=== PATIENT | male | born 1955 | race Caucasian/White ===

== ENCOUNTER → 2018-01-28 14:20 | Outpatient (CLI) | payer OTHER, SELFPAY | PROVIDERS: Visit Provider Podiatrist | DX: L03.031 Cellulitis of right toe (principal) | CPT/HCPCS: 87070; 87075; 87077; 87186; 87205 ==

== ENCOUNTER → 2019-05-15 | Outpatient (CLI) | payer OTHER, SELFPAY ==
[2016-12-04 09:48] VITALS: BMI 37.6
--- NOTE | 2019-05-15 15:55 | RAD_ITS ---
STUDY: X-RAY - PELVIS AND RIGHT HIP REASON FOR EXAM: Male, 64 years old. Right hip pain for one week. TECHNIQUE: 3 views of the pelvis and hip. COMPARISON: None. FINDINGS: There is a non-specific bowel gas pattern. Normal visualized soft tissue structures. There are mild degenerative changes lower lumbar spine. There is narrowing with cortical sclerosis and osteophyte formation of the sacroiliac joint consistent with degenerative osteoarthritic changes. Normal iliac wings and visualized sacrum. Normal bilateral superior and inferior pubic rami. There are degenerative changes of the pubic symphysis with articular narrowing and sclerosis. Normal bilateral ischial tuberosities. Normal visualized right femoral head. There is osteoarthritic spur formation of the right acetabular rim. There is mild articular joint space narrowing of the right hip. RAD/HIP, UNI W/ Pelvis 2-3 Views IMPRESSION: Degenerative changes of the pelvis and right hip. Electronically Signed: Jeffery Whiteside DO at 18:40 EDT Tel [phone], Service support ,
== END | disposition home or self-care (01) ==
LOC: MTLAB 15:50 → MTRAD 15:53
PROVIDERS: Family Provider Family Medicine; PCP Family Medicine; Referring Provider Family Medicine; Visit Provider Family Medicine
DX: M25.551 Pain in right hip (principal)
CPT/HCPCS: 73502

== ENCOUNTER → 2019-06-09 | Outpatient (CLI) | payer OTHER, SELFPAY ==
[2016-12-04 09:48] VITALS: BMI 37.6
--- NOTE | 2019-06-09 16:12 | RAD_ITS ---
STUDY: X-RAY - LUMBAR SPINE REASON FOR EXAM: Male, 64 years old. Leg pain and weakness. TECHNIQUE: 5 view(s) of the lumbar spine were obtained. COMPARISON: None FINDINGS: Normal lumbar lordosis. Mild levoscoliosis centered at the thoracolumbar junction. There is a normal alignment of the vertebrae. Normal vertebral body height without fracture deformity, osteolytic or blastic bone lesions. Moderate to advanced disc narrowing at L1-L2, L2-3 and L3-4 with substantial spondylitic endplate changes. Milder disc narrowing and spondylitic endplate changes at L4-5 and L5-S1. Posterior hypertrophic facet arthrosis at most lumbar levels. Atherosclerotic calcification of the aorta and iliac vessels. RAD/L/S Spine Min 4 Views IMPRESSION: Normal lumbar lordosis with a mild levoscoliosis centered at the thoracolumbar junction. Advanced degenerative disc narrowing and spondylitic endplate changes at L1-2, L2-3 and L3-4 with milder degenerative disc changes at L4-5 and L5-S1. Hypertrophic facet arthrosis at most lumbar levels. Electronically Signed: Amie Chadwick MD at 16:32 EDT , Service support ,
== END | disposition home or self-care (01) ==
LOC: MTRAD 16:10
PROVIDERS: Family Provider Family Medicine; PCP Family Medicine; Referring Provider Family Medicine; Visit Provider Family Medicine
DX: M25.551 Pain in right hip (principal); M48.00 Spinal stenosis, site unspecified
CPT/HCPCS: 72110

== ENCOUNTER 2019-07-07 02:40 | Emergency (ER) | payer OTHER, SELFPAY ==
[2019-06-21 08:05] VITALS: BMI 37.6
[2019-07-07 02:40] VITALS: BP 145/83; PULSE 100; RESP 18; TEMP 37; O2SAT 94; BMI 40.8
--- NOTE | 2019-07-07 03:03 | ED.DCSUM_ITS ---
History of Present Illness Chief Complaint: Back Informant: Patient Narrative: Stated he has a known pectus herniation and DJD in his lumbar spine. He had x- rays that showed these recently. He also had a x-ray of his hips. He saw an orthopedist. He has not seen orthopedic back specialist however. He started physical therapy and has been through 4 sessions. They have been doing traction and range of motion. Tonight he aggravated his low back when he was sitting on the toilet. He tried to get up and felt sharp pain in his left lower back with radiation down the lateral aspect of his leg. This is been going on and off for a year. He took nabumetone with minimal relief. This was given to him by his family doctor. He is never needed narcotics. No loss of bowel or bladder function. Worsened by movement. Describes the pain as sharp Past Medical History - Allergies and Home Meds Allergies/Adverse Reactions: Allergies No Known Allergies Allergy (Verified 07/07/19 02:45) Primary Care Physician: Ari Bar MD [Primary Care Provider] - Prior records reviewed: Yes Past Medical History: - - Reviewed Surgical History: - - Reviewed Lives: Spouse/ Significant Other Smoking Status: Never smoker Alcohol: None Drugs: None Review of Systems General: Denies: Chills, Fever, Sweats Eyes: Denies: Visual changes - bilaterally, Diplopia ENT: Denies: Rhinorrhea, Sore throat Cardiovascular: Denies: Chest pain, Palpitations Respiratory: Denies: Dyspnea, Cough, Dyspnea on exertion Gastrointestinal: Denies: Abdominal pain, Nausea, Vomiting, Diarrhea, Melena, Hematochezia Genitourinary: Denies: Dysuria, Hematuria, Frequency Musculoskeletal: Reports: Back pain, Extremity Pain Skin: Denies: Rash, Wounds Neurological: Denies: Headache, Weakness, Numbness Physical Exam Vital Signs/Narrative: Vital Signs Temp Pulse Resp BP Pulse Ox 07/07/19 02:40 98.6 F 100 18 145/83 H 94 General: Well nourished, Well developed, No Acute Distress Head: Normocephalic, Atraumatic Eyes: Perrl, EOMI ENT: Moist mucous membranes, No rhinorrhea Neck: Supple, Nontender Cardiovascular: Regular rate, Regular rhythm, No murmurs Respiratory: No distress, CTA bilaterally, Chest nontender Abdomen: Soft, Nontender, Nondistended, Normal bowel sounds Back: Normal Inspection, - - Arthur in the left lateral lumbar spine paraspinals. No swelling or deformity. Decreased range of motion all tee secondary to pain.. Negative for: Nontender Extremities: Nontender, No edema Skin: Normal color, No rash Neurological: Alert, Oriented x3, Cranial nerves II-XII grossly intact, Normal Strength, Normal Sensation Psychological: Normal affect, Normal Mood Diagnostic/Tx/Re-eval - Medical Decision Making Time I feel the patient has a lumbar radiculopathy with pinched nerve in his lower back from his DJD. He has not had an MRI yet. He will need one as an outpatient. Given morphine and Toradol with good relief of symptoms. Will be discharged with Percocet and a Medrol Dosepak and will follow up with his spinal doctor. I do not feel he needs acute imaging. I feel he needs an outpatient MRI. He will continue physical therapy. ED Disposition - Plan for ED Patient: Disposition: Psychiatric Hospital or Unit Diagnosis: Lumbar disc herniation with radiculopathy Diagnosis: (Ruled Out): Lumbar disc herniation Instructions: Herniated Intervertebral Disc Prescriptions: MethylPREDNISolone DosePak [Medrol DosePak] 4 mg PO UD #1 box Prescription Printed Oxycodone HCl/Acetaminophen [Percocet 5/325] 1 - 2 tab PO Q6H PRN PRN 3 Days #15 tab PRN Reason: Pain Prescription Printed Referrals: Ari Bar MD [Primary Care Provider] -
[2019-07-07] MEDS: morphine 8 MG/ML Syringe IM (03:09)
[2019-07-07] MEDS: Ketorolac 15 MG/ML Vial IM (03:11)
[2019-07-07 03:47] VITALS: BP 140/60; PULSE 89; RESP 18; O2SAT 96
== END 2019-07-07 03:47 | disposition home or self-care (01) ==
PROVIDERS: Emergency Provider Emergency Medicine; Family Provider Family Medicine; PCP Family Medicine
DX: M51.16 Intervertebral disc disorders with radiculopathy, lumbar region (principal); Z79.82 Long term (current) use of aspirin; Z79.899 Other long term (current) drug therapy
CPT/HCPCS: 96372; 99282

== ENCOUNTER 2019-09-11 12:00 | Outpatient (RCR) | payer OTHER, SELFPAY ==
[2019-06-21 08:05] VITALS: BMI 37.6
--- NOTE | 2019-06-30 08:18 | HP.PTEVAL_ITS ---
Patient's Visit Information FRANSICO OROZCO is a 64 year old M referred to Physical Therapy by Nash Mccarthy DO with a diagnosis of lumbar DDD. Date of Evaluation: 06/29/19 Physical Therapist: Gil Quinn DPT - Visit Plan Frequency: 2x /Week Duration: 4-6 Weeks Plan: Start with SKTC/DKTC, TA activation exercises and lumbar traction. May trial aquatic therapy if not progressing. - Subjective Findings: Pt. is here today for his initial evaluatuion with diagnosis of DDD. Pt. repors having B posterior hip pain for years. He went to see ortho thinking he needed JULIAN, but found that his hips were relatively okay. Pt. reprots having increased pain that starts in hips and radiated down his legs, L worse than R. Pain mostly in his hips. Pt. reports occassional N/T, and a feeling of heaviness in BLEs with prolonged walking. No pain with sitting or lying, but does have incerased pain after ~5-10 minutes of walking and has to stop after ~30 minutes of standing/walking. Pt. has not tired chiro, ice, heat and no exercises to this pioint. Pt. has had an xray, but no MRI. Pt. is retired, but enjoys working on cars in free time. Pt. is hopeful to reduce pain in order to get back to all recreational activities without limitations. - Pain B hips Pain Intensity (Out of 10): 2 Pain Intensity Range: 0, 8 - Objective POSTURE: Pt. is over wt. Pt. has generalized flexed piosture without rounded shuolders and fwrd head. Pt. has anterior tilt of his pelvis in stance, but equal side to side. PALPATION: Pt. has mild pain at L3-L5, but not severe, hypomobiity noted at throughout lumbar spine with spring testing. NEURO: normal DTR, normal sensation throughout lumbar spine. ROM: LUMBAR SPINE: fleuxon min/nil loss mild increase NW, extension min/mod loss increase NW, SB min/nil loss NE bilat, rotation min/nil loss NE bilat. HS tight and hip flexor tightness noted bilat. HIP ROM: normal bilat NE increase in symptoms. MMT: Pt. has good bilatearl LE strength, but has 4/5 hip flexion and abuction both incerase symptoms. gait: Pt. is able to ambulate ~100' prior to having increased pain. Pt. reports pain starting in posterior hips and radiates slightly inferior. STAIRS: 1 flight reciprocal pattern with HR, mild incerase NW. - Goals Goal 1:: Pt. to be I with HEP. Goal Time Frame: 4-6 Weeks Goal 2:: Pt. to have increased HS and hip flexor length without increase insymptoms. Goal Time Frame: 4-6 Weeks Goal 3:: Pt. to have increased fhip flexor and hip abd, core strength by 1/2 grade. Goal Time Frame: 4-6 Weeks Goal 4:: Pt. to walk upto 30 minutes without increase in symptoms. Goal Time Frame: 4-6 Weeks Goal 5:: Pt. to be able to work on his cars without increase in symptoms. Goal Time Frame: 4-6 Weeks - Rehabilitation Potential Physical Therapy Diagnosis: Pt. has signs and symptoms consistent with lumbar DDD. Pt. has decreased core strength, difficulty walking and presents with spinal stenosis like symptoms. Pt. would benefit from PT to increase core stabilty, decrease symptoms and promote tolerance with walking. Rehabilitation Potential: Good - Anticipated Interventions Patient/Client Instruction: Educate patient on: Condition, Plan of Care, Risk Factors, Benefits of Fitness Program For the Purpose of:: To foster healthy habits, To improve decision making, To facilitate caregiver knowledge, To improve self management, To prevent re- injury, To improve ability to perform tasks related to life management, To improve tolerance to ADL's Therapeutic Exercise to Include: Strength training, Power training, Body mechanics, Postural training, Flexibilty training, Gait and locomotor training, Passive ROM, Active ROM, Dynamic Lumbar Stabilization, Eric Exercises For the Purpose of:: To decrease pain, To decrease swelling/inflammation, To increase ROM, To improve nutrient delivery to tissue, To improve muscle performance and motor function, To improve gait and locomotor functions, To improve health of tissue, To decrease soft tissue restriction, To increase flexibility/ROM, To improve endurance Manual Therapy Techniques to Include: Mobilization, Passive ROM, Soft tissue mobilization For the Purpose of:: To decrease pain, To decrease swelling/inflammation, To increase ROM IF ES: Yes Cryotherapy (ice pack, ice massage): Yes Thermo therapy (hot pack): Yes Ultrasound (thermal/non thermal): Yes For the Purpose of:: To decrease pain, To decrease swelling/inflammation, To increase ROM, To improve nutrient delivery to tissue Thank you for the opportunity to evaluate your patient. For Medicare and Medicare HMO plans, please review the plan of care and approve it. It will need to be FAXED BACK to us at [phone] for Medicare purposes. For Medicare only, by signing this I certify the plan of care. Please let me know if there are questions or concerns regarding this plan of care. Physician Signature: Date:
--- NOTE | 2019-08-14 14:57 | HP.PTREVAL_ITS ---
Nash Mccarthy, DO, It has been my pleasure to treat FRANSICO Gamez WALKER over the last 9 visits for lumbar DDD. Please see the progress note below for an update on the physical therapy plan of care! Subjective: Pt. reports I am about 60% better overall. Pt. reports I was doing really well last week, but went to change is oil in both cars and had some increased soreness since. Pt. reports having 1/10 pain currently. He was able to ambulate upto 45' in grocery store last week with minimal issues. Pt. reports symptoms at in center of lumbar spine and slightly to L side. Objective/Function: Lumbar spine ROM: flexion min/nil loss mild increase NW, ext mod loss mild increase NW, SB min/nil loss NE, rotation min/nil loss mild increase NW bilat. Tight HS bilat. Pt. was able to ambulate for 15' with mild increase in symptoms, but was upto 45' last week. MMT: RLE: R hip flexor 4+/5, abd 4/,5 ext 4+/5. LLE hip- flexion 4/5, abd 4+/5. ext 4/5. He was able to completed an oil change of his cars, but did have increased symptoms after wards. Plan Plan: POC extended as he is progressing, but not at full potential. Pt. would benefit from continued PT with focus on core stability exercses, gym core progression and weaning from traction as tolerated. Goals Goal 1:: Pt. to be I with HEP. Goal Time Frame: 4-6 Weeks Goal Progress: Progressing Goal 2:: Pt. to have increased HS and hip flexor length without increase insymptoms. Goal Time Frame: 4-6 Weeks Goal Progress: Progressing Goal 3:: Pt. to have increased fhip flexor and hip abd, core strength by 1/2 grade. Goal Time Frame: 4-6 Weeks Goal Progress: Progressing Goal 4:: Pt. to walk upto 30 minutes without increase in symptoms. Goal Time Frame: 4-6 Weeks Goal Progress: Progressing Goal 5:: Pt. to be able to work on his cars without increase in symptoms. Goal Time Frame: 4-6 Weeks Goal Progress: Progressing Anticipated Interventions Patient/Client Instruction: Educate patient on: Condition, Plan of Care, Risk Factors, Benefits of Fitness Program For the Purpose of:: To foster healthy habits, To improve decision making, To facilitate caregiver knowledge, To improve self management, To prevent re- injury, To improve ability to perform tasks related to life management, To improve tolerance to ADL's Therapeutic Exercise to Include: Strength training, Power training, Body mechanics, Postural training, Flexibilty training, Gait and locomotor training, Passive ROM, Active ROM, Dynamic Lumbar Stabilization, Eric Exercises For the Purpose of:: To decrease pain, To decrease swelling/inflammation, To increase ROM, To improve nutrient delivery to tissue, To improve muscle performance and motor function, To improve gait and locomotor functions, To improve health of tissue, To decrease soft tissue restriction, To increase flexibility/ROM, To improve endurance Manual Therapy Techniques to Include: Mobilization, Passive ROM, Soft tissue mobilization For the Purpose of:: To decrease pain, To decrease swelling/inflammation, To increase ROM IF ES: Yes Cryotherapy (ice pack, ice massage): Yes Thermo therapy (hot pack): Yes Ultrasound (thermal/non thermal): Yes For the Purpose of:: To decrease pain, To decrease swelling/inflammation, To increase ROM, To improve nutrient delivery to tissue Please do not hesitate to contact me at [phone] by phone or if you have questions or concerns regarding this new plan of care! Sincerely, Gil Quinn DPT
--- NOTE | 2019-09-11 12:34 | HP.PTDCSUM_ITS ---
HP - PT D/C Summary It has been my pleasure to treat FRANSICO OROZCO under orders from Nash Mccarthy DO, for the diagnosis of lumbar DDD for a total of 17 visit(s). Discharge Date: 09/11/19 Please see the following information for a summary of their discharge status. - Subjective Subjective: Pt. reports I am 100% better overall. pt. reports being HEP compliant. He is able to walk longer distances and even work on his car. Pt. reports being pleased. No pain pre treatment todayy - Pain B hips Pain Intensity (Out of 10): 0 LB Pain Intensity (Out of 10): 0 - Overall Improvement % Improvement: 100 - Objective Objective/Function: ROM: LUMBAR SPINE: flexion min loss NE, extension min loss NE, SB min loss bilat NE, rotation nil loss NE bilat. Pt. has 75deg of HS length bilaterally. Normal hip extension noted. AMBULATION: Pt. was able to ambulate 1000+ feet without issues. He still has an overall flexed posture. Pt. reported no LBP during this trial. STAIRS: No HR with reciprocal pattern no pain. Pt. has 5/5 BLE strength, except 5-/5 B hip abd and extension. Fair core strength. - Goals Goal 1:: Pt. to be I with HEP. (Pt independent with home and gym exercises) Goal Progress: Goal Met Goal 2:: Pt. to have increased HS and hip flexor length without increase insymptoms. Goal Progress: Goal Met Goal 3:: Pt. to have increased fhip flexor and hip abd, core strength by 1/2 grade. (4+/5 bilaterally) Goal Progress: Goal Met Goal 4:: Pt. to walk upto 30 minutes without increase in symptoms. (Pt. reports being able to walk 45 minutes over the weekend without issues). Goal Progress: Goal Met Goal 5:: Pt. to be able to work on his cars without increase in symptoms. (Pt was able to chane oil and brakes in his car without limitations, slight increased rest periods). Goal Progress: Goal Met - Plan Plan: Pt. to be DC to HEP and gym exercises at this point in time. - D/C Information Discharge Comments: Pt. did very well with traction and core stability exercuses. Pt. reprots being 100% better overall. He does howwever have some limitations in working underneath his car for longer periods of time. He has overall improved strength and control. He is back to most of his activities with out limitations. Pt. will be DC to HEP and gym exercises at this point in time. If there are questions or concerns regarding this patient's physical therapy, please feel free to call me at [phone]. Thank you for the referral of this patient. Sincerely, HELLEN JamesT
== END 2019-09-11 13:00 | disposition home or self-care (01) ==
LOC: PT 12:00
PROVIDERS: Family Provider Family Medicine; PCP Family Medicine; Referring Provider Orthopaedic Surgery; Visit Provider Orthopaedic Surgery
DX: M51.36 Other intervertebral disc degeneration, lumbar region (principal)
CPT/HCPCS: 97012; 97110; 97161; 97530

== ENCOUNTER → 2021-09-26 08:49 | Outpatient (CLI) | payer OTHER, SELFPAY ==
--- NOTE | 2021-09-26 08:53 | RAD_ITS ---
STUDY: X-RAY CHEST REASON FOR EXAM: Male, 66 years old. DYSPNEA TECHNIQUE: PA and lateral COMPARISON: None. FINDINGS: Nonspecific elevation right hemidiaphragm.. There is no demonstrated pleural abnormality. Normal size heart. Normal mediastinum and goldy. Normal visualized pulmonary arteries. Normal visualized aortic arch and descending thoracic aorta. Dorsal spine and shoulders demonstrate degenerative change. Normal visualized ribs, and clavicles. There is no demonstrated abnormality of the visualized soft tissue structures of the upper abdomen. RAD/Chest PA and Lateral IMPRESSION: No acute cardiopulmonary pathology Electronically Signed: Luis Felipe Fermin MD at 16:49 EDT , Service support ,
== END ==
PROVIDERS: PCP Family Medicine; Referring Provider Family Medicine; Visit Provider Family Medicine
DX: R06.00 Dyspnea, unspecified (principal); I20.8 Other forms of angina pectoris
CPT/HCPCS: 71046

== ENCOUNTER 2022-05-12 08:21 | Day surgery (SDC) | payer BC, SELFPAY ==
[2022-05-12] VITALS (7 sets, daily range): BP systolic 102–149; BP diastolic 32–85; PULSE 61–91; RESP 16–18; TEMP 36.3–36.8; O2SAT 94–96; BMI 38.0
[2022-05-12] MEDS: Lactated Ringers 1,000 ML 15 ML IV (08:58)
[2022-05-12 09:06] LABS: Bedside Glucose 176 mg/dL (74-106)
--- NOTE | 2022-05-12 09:47 | H&P.OPEN ---
HPI - General HPI Narrative FRANSICO OROZCO, is a 67 M who presents for surveillance colonoscopy. He has last colonoscopy 5 years ago and several polyps were removed. Patient does have family history of colon cancer in his mother. [facility] Medical History (Updated 05/07/22 @ 14:50 by Leslie Griffin) Alcohol use Back pain Diabetes Diabetes mellitus Dietary restriction DVT (deep venous thrombosis) Fatty liver Hypertension Mixed hyperlipidemia Non-smoker Prostate disease Wears glasses Home Medications amlodipine 10 mg tablet 10 mg PO DAILY 12/02/16 [History Last Taken 05/12/22 07:00] aspirin 81 mg tablet,delayed release 81 mg PO DAILY@0800 12/02/16 [History Last Taken Unknown] losartan 100 mg-hydrochlorothiazide 25 mg tablet 1 ea PO DAILY 12/02/16 [History Last Taken Unknown] naproxen 500 mg tablet 500 mg PO DAILY PRN 12/02/16 [History Last Taken Unknown] pioglitazone 30 mg tablet 30 mg PO DAILY 12/02/16 [History Last Taken Unknown] pitavastatin calcium 4 mg tablet 4 mg PO DAILY 12/02/16 [History Last Taken Unknown] tamsulosin 0.4 mg capsule 0.8 mg PO DAILY 12/02/16 [History Last Taken Unknown] empagliflozin 25 mg tablet (Jardiance) 25 mg PO DAILY 06/21/19 [History Last Taken Unknown] potassium chloride 20 mEq tablet,extended release(part/cryst) 20 meq PO BID #180 tabs 06/21/19 [History Last Taken Unknown] Glumetza 1,000 mg PO BID 07/07/19 [History Last Taken Unknown] ascorbic acid (vitamin C) 1,000 mg capsule,extended release 1 cap PO DAILY 05/07/22 [History Last Taken Unknown] cholecalciferol (vitamin D3) 100 mcg (4,000 unit) capsule 400 mcg PO TUTH 05/07/22 [History Last Taken Unknown] glimepiride 4 mg tablet 4 mg PO BID 05/07/22 [History Last Taken Unknown] vitamin B12 2,500 mcg-folic acid 400 mcg disintegrating tablet 1 tab PO TUTH 05/07/22 [History Last Taken Unknown] Allergy/AdvReac Type Severity Reaction Status Date / Time No Known Allergies Allergy Verified 05/12/22 08:53 Family History (Updated 03/31/22 @ 09:12 by Shweta Bennett) Mother Colon cancer Surgical History (Updated 05/07/22 @ 14:50 by Leslie Griffin) History of colonoscopy with polypectomy History of liver biopsy Hx of foot surgery Hx of tonsillectomy Social History Smoking Status: Never smoker Past Medical/Surgical History Planned Operation Planned Operative Procedure/s: CSCOPE OA S.O.S: No Previous Hospitalizations/Surgeries HX Hospitalizations: No HX of Surgeries: TONSILLECTOMY FISULLA ON L FOOT LIVER BX Any Problems With Anesthesia: No You/Your Family Experience Fever (Hyperthermia) With Anes: No Cholinesterase deficiency: No Cardiovascular Hx Chest Pain within Last 2 months: No Hx of Irregular Heartbeat and/or Afib: No Hx Heart Attack: No Hx Congestive Heart Failure: No Hx Rheumatic Fever: No Hx Hypertension: Yes (CONTROLLED WITH MED) Hx Internal Defibrillator: No Hx Pacemaker: No Hx Cardiac Catheterization: No Hx Cardiac Surgery/Stents/Etc.: No Hx Stress Test: No Hx Pain in Legs when Walking/Leg Cramps: No Respiratory Chronic Cough: No HX of Shortness of Breath: No Hoarseness: No Hx Chronic Obstructive Pulmonary Disease (COPD): No Hx Asthma: No Hx Emphysema: No Hx Sleep Apnea: No Hx Respiratory Tract Infection/Cold (presently): No Do You Snore Loudly (louder than talking or can be heard): No Do You Often Feel Tired/ Fatigued/ Sleepy Dring Daytime?: No Has Anyone Observed You Stop Breathing During Sleep?: No Result (for STOP score): Negative Hx Smoking: No Smoking Status: Never smoker Gastrointestinal Hx Gastroesophageal Reflux: No Hx Gastrointestinal Disorders: No Hx Gastrointestinal Bleed: No Hx Ulcer: No Hx Hiatal Hernia: No Difficulty Chewing/Swallowing: No Special diet followed at home: No Hx Unplanned Weight Loss of 20#: No HX Unplanned Weight Gain of 20#: No Neurological Hx Seizures: No HX Syncope/Blackout Spells/Unconsciousness: No Hx Transient Ischemic Attacks (TIA): No Hx Multiple Sclerosis: No Hx Parkinson's Disease: No Hx Head/Neck Injury: No Hx Headaches: No Hx Back Injury/Pain: Yes (DDD) Recent Onset of Speech Difficulty: No Restless Legs: No Does patient have nerve stimulator: No Blood Disorder Hx Leukemia: No Bleeding Tendencies: No Hx Deep Vein Thrombosis: No Hx High Cholesterol: Yes (ON MED) Blood Transmitted Disease: No Hx Hepatitis: No Hx Cirrhosis: No Hx Anemia: No Hx Blood Disorders: No Reproduction : No Genitourinary Hx Renal Disease: No Musculoskeletal Hx Arthritis: No Hx Rheumatoid Arthritis: No Hx Gout: Yes (25 YRS AGO) Recent Onset of an Orthopedic Problem: No Endocrine Hx Diabetes: Yes Insulin: No Thyroid Disease: No Hx Steroid Therapy: No Psycho/Social Hx Substance Use: No Hx Alcohol Use: No Hx Anxiety: No Hx Depression: No Mental Illness: No Hx Dementia: No Miscellaneous Hx Cancer: No Recent Exposure to Contagious Disease: No Hx of C-Diff: No Any Loose Teeth: No Allergies No Known Allergies Allergy (Verified 05/12/22 08:53) Discharge Is Pt Admitted From a Longterm, or a Halfway: No After D/C, Where Do you Plan to Go: Return Home From the [facility] History Number of Risk Factors: 1 Vital Signs Vital Signs Vital Signs: 05/12/22 08:54 05/12/22 08:54 Temperature 98.2 F Temperature Source Temporal Pulse Rate 91 Respiratory Rate 16 Respiratory Pattern Normal Blood Pressure 149/85 H Blood Pressure Mean 106 Blood Pressure Source Monitor Blood Pressure Position Sitting Blood Pressure Location Right Arm Pulse Ox 96 Oxygen Delivery Method Room Air Weight Weight: 272 lb 14.916 oz Body Mass Index (BMI) 38.0 Physical Exam Const alert and oriented x3 Resp normal respiratory effort and normal air movement Cardio regular rate and regular rhythm GI soft to palpation, non-tender and non-distended Assessment & Plan Assessment/Plan (1) Screening for colon cancer: PLAN: I explained endoscopy in detail to the patient. I explained the risks including but not limited to stroke or heart attack with anesthesia, perforation of the GI tract, bleeding, infection. I explained that any of these could necessitate further emergency surgery. The patient understands and all questions were answered sufficiently. The patient wishes to proceed with procedure. Artemio Luong MD Pager: [facility] [address] [place] [address], [address] [place] [address] Office: Surgery Risks - Colonoscopy Risks Include but are not Limited To: Risks include but are not limited to: Bleeding, perforation requiring further surgery, inability to complete colonoscopy requiring barium enema.
--- NOTE | 2022-05-12 10:22 | OP.CCLET_ITS ---
05/12/2022 Ari Bar Re : Colonoscopy procedure for Sidney Soriano Dear Yosvany This procedure was performed on Thursday, May 12, 2022. My impressions and recommendations are as follows: Impressions : - The entire examined colon is normal on direct and retroflexion views. - No specimens collected. Recommendations : - Discharge patient to home. - Resume previous diet. - Continue present medications. - Repeat colonoscopy in 5 years for surveillance. My findings are described in the full procedure note, which is enclosed. If I can be of further assistance, please feel free to contact me at Doctor phone number(s): , Work: . Sincerely, Artemio Luong MD 05/12/2022 10:21:59 AM This report has been signed electronically.
--- NOTE | 2022-05-12 10:22 | OP.COLON_ITS ---
Patient Name: Sidney Soriano Procedure Date: 05/12/2022 9:52 AM Date of : 1955 Age: 67 Procedure: Colonoscopy Indications: High risk colon cancer surveillance: Personal history of colonic polyps Providers: Artemio Luong MD Medicines: Monitored Anesthesia Care Patient Profile: This is a 67 year old male. Refer to note in patient chart for documentation of history and physical. Last Colonoscopy: 5 years ago. Last Colonoscopy: 5 years ago. Complications: No immediate complications. Procedure: Pre-Anesthesia Assessment: - Prior to the procedure, a History and Physical was performed, and patient medications and allergies were reviewed. The patient's tolerance of previous anesthesia was also reviewed. The risks and benefits of the procedure and the sedation options and risks were discussed with the patient. All questions were answered, and informed consent was obtained. Prior Anticoagulants: The patient has taken no previous anticoagulant or antiplatelet agents. After reviewing the risks and benefits, the patient was deemed in satisfactory condition to undergo the procedure. After I obtained informed consent, the scope was passed under direct vision. Throughout the procedure, the patient's blood pressure, pulse, and oxygen saturations were monitored continuously. The pediatric colonoscope was introduced through the anus and advanced to the cecum, identified by appendiceal orifice and ileocecal valve. The colonoscopy was performed without difficulty. The patient tolerated the procedure well. The quality of the bowel preparation was good. Scope In: 10:02:13 AM Scope Withdrawal Time 0 hours 6 minutes 3 seconds Scope Out: 10:17:38 AM Total Procedure Duration Time 0 hours 15 minutes 25 seconds Findings: The entire examined colon appeared normal on direct and retroflexion views. Impression: - The entire examined colon is normal on direct and retroflexion views. - No specimens collected. Recommendation: - Discharge patient to home. - Resume previous diet. - Continue present medications. - Repeat colonoscopy in 5 years for surveillance. Procedure Code(s): --- Professional --- 79066, Colonoscopy, flexible; diagnostic, including collection of specimen(s) by brushing or washing, when performed (separate procedure) Diagnosis Code(s): --- Professional --- Z86.010, Personal history of colonic polyps CPT copyright 2017 [employer]. All rights reserved. The codes documented in this report are preliminary and upon hairspring staker review may be revised to meet current compliance requirements. Artemio Luong MD 05/12/2022 10:21:59 AM This report has been signed electronically. Number of Addenda: 0 Note Initiated On: 05/12/2022 9:52 AM
== END 2022-05-12 11:01 | disposition home or self-care (01) ==
LOC: EN 08:22 → AC 08:25
PROVIDERS: PCP Family Medicine; Referring Provider Family Medicine; Visit Provider Surgery
PROC: 0DJD8ZZ Inspection of Lower Intestinal Tract, Via Natural or Artificial Opening Endoscopic (ICD-10-PCS; CPT 45378; principal; 2022-05-12 09:25)
DX: Z12.11 Encounter for screening for malignant neoplasm of colon (principal); E11.9 Type 2 diabetes mellitus without complications; I10 Essential (primary) hypertension; E78.00 Pure hypercholesterolemia, unspecified; N40.0 Benign prostatic hyperplasia without lower urinary tract symptoms; K76.0 Fatty (change of) liver, not elsewhere classified; Z79.84 Long term (current) use of oral hypoglycemic drugs; Z86.718 Personal history of other venous thrombosis and embolism; Z79.899 Other long term (current) drug therapy; Z79.82 Long term (current) use of aspirin; Z86.010 Personal history of colon polyps; Z80.0 Family history of malignant neoplasm of digestive organs
CPT/HCPCS: 45378; 82962; J7120

== ENCOUNTER → 2023-05-04 | Outpatient (CLI) | payer BC, SELFPAY ==
[2023-05-04 13:03] LABS: Anion Gap 9 (5-15); BUN 15 mg/dL (7-18); BUN/Creat Ratio 14.3 RATIO (10-20); Calcium,Total 9.4 mg/dL (8.5-10.1); Chloride 102 mmol/L (98-107); Creatinine, Serum 1.05 mg/dL (0.70-1.30); EST Glomerular Filtration Rate 75 mL/min (>60); Est Glom Filt Rate - Afr Amer 90 mL/min (>60); Glucose 148 mg/dL (74-106); Potassium 3.3 mmol/L (3.5-5.1); Sodium Level 137 mmol/L (136-145)
== END | disposition home or self-care (01) ==
LOC: MTLAB 11:06
PROVIDERS: PCP Family Medicine; Referring Provider Family Medicine; Visit Provider Family Medicine
DX: E11.9 Type 2 diabetes mellitus without complications (principal)
CPT/HCPCS: 36415; 80048

== ENCOUNTER → 2023-07-13 | Outpatient (CLI) | payer BC, SELFPAY ==
[2023-07-13 13:10] LABS: ALB/GLOB Ratio 1.1 RATIO (0.9-2.4); AST(SGOT) 20 U/L (15-37); Alanine Aminotransfer ALT/SGPT 38 U/L (16-61); Alkaline Phosphatase 84 U/L (45-117); Anion Gap 9 (5-15); BUN 16 mg/dL (7-18); BUN/Creat Ratio 16.2 RATIO (10-20); Chloride 101 mmol/L (98-107); Creatinine, Serum 0.98 mg/dL (0.70-1.30); EST Glomerular Filtration Rate 80 mL/min (>60); Est Glom Filt Rate - Afr Amer 97 mL/min (>60); Globulin 3.5 g/dL (2.2-4.2); Glucose 125 mg/dL (74-106); PSA,Total - Annual Screen 1.63 ng/mL (0.00-4.00); Potassium 2.9 mmol/L (3.5-5.1); Protein, Total 7.5 g/dL (6.4-8.2); Sodium Level 137 mmol/L (136-145)
== END | disposition home or self-care (01) ==
LOC: MFPLAB 09:54
PROVIDERS: PCP Family Medicine; Visit Provider Family Medicine
DX: Z00.00 Encounter for general adult medical examination without abnormal findings (principal); Z71.85 Encounter for immunization safety counseling
CPT/HCPCS: 36415; 80053; 83036; 84153; G0103

== ENCOUNTER → 2023-08-02 | Outpatient (CLI) | payer BC, SELFPAY ==
[2023-08-02 12:44] LABS: Potassium 3.1 mmol/L (3.5-5.1)
== END | disposition home or self-care (01) ==
LOC: MFPLAB 09:54
PROVIDERS: PCP Family Medicine; Visit Provider Family Medicine
DX: E87.6 Hypokalemia (principal)
CPT/HCPCS: 36415; 84132

== ENCOUNTER → 2023-09-21 | Outpatient (CLI) | payer BC, SELFPAY ==
[2023-09-21 12:09] LABS: Absolute Lymphocyte Count 1.53 X10^3/uL (0.83-4.51); Absolute Neutrophil Count 3.7 X10^3/uL (2.0-7.7); Basophil# 0.03 X10^3/uL; Basophil% 0.5 % (0-1); Eosinophil# 0.09 X10^3/uL; Eosinophils% 1.5 % (0-5); Hematocrit 49.5 % (40-54); Hemoglobin 16.4 g/dL (13.0-16.5); Lymphocyte # 1.53 X10^3/ul (0.83-4.51); Mean Corp Hgb Conc 33.1 g/dL (32-36); Mean Corpuscular Hgb 29.1 pg (27.0-32.0); Mean Corpuscular Volume 87.9 fL (80-94); Mean Platelet Vol. 10.9 fl (6.2-12.0); Monocyte# 0.55 X10^3/uL; Monocyte% 9.3 % (0-10); NRBC Flagged by Analyzer 0 % (0-5); Neutrophil # 3.67 X10^3/uL (2.7-7.7); Neutrophil % 62.4 % (47-70); Platelet Count 273 K/mm3 (150-450); RBC Distribution Width CV 13.8 % (11.6-14.6); RBC Distribution Width SD 44.8 fl (35.1-43.9); Red Blood Count 5.63 M/mm3 (4.6-6.2); White Blood Count 5.9 K/mm3 (4.4-11.0)
[2023-09-21 12:25] LABS: Vitamin D,25 Hydroxy 68.6 ng/mL
[2023-09-21 12:34] LABS: AST(SGOT) 15 U/L (15-37); Alanine Aminotransfer ALT/SGPT 37 U/L (16-61); Albumin, Serum 3.7 g/dL (3.2-5.0); Alkaline Phosphatase 90 U/L (45-117); Anion Gap 6 (5-15); BUN 20 mg/dL (7-18); BUN/Creat Ratio 20.7 RATIO (10-20); Calcium,Total 8.9 mg/dL (8.5-10.1); Chloride 99 mmol/L (98-107); Cholesterol 171 mg/dL (200); Creatinine, Serum 0.97 mg/dL (0.70-1.30); EST Glomerular Filtration Rate 82 mL/min (>60); Est Glom Filt Rate - Afr Amer 99 mL/min (>60); Globulin 3.6 g/dL (2.2-4.2); Glucose 120 mg/dL (74-106); High Density Lipoprotein 49 mg/dL; Potassium 3.1 mmol/L (3.5-5.1); Protein, Total 7.3 g/dL (6.4-8.2); Sodium Level 137 mmol/L (136-145); T4 Free Direct 1.32 ng/dL (0.76-1.46); Thyroid Stim Hormone (TSH) 1.96 uIU/mL (0.358-3.74); Triglycerides 133 mg/dL; Very Low Density Lipoprotein 27 mg/dL (5-40)
[2023-09-21 12:59] LABS: Microalbumin,Random Urine 11.4 mg/L (NO RANGE EST.); Microalbumin:Creatinine Ratio 33.1 mg/g CRE (<30 mg/g CRE)
== END | disposition home or self-care (01) ==
LOC: MFPLAB 09:44
PROVIDERS: PCP Family Medicine; Visit Provider Family Medicine
DX: E11.65 Type 2 diabetes mellitus with hyperglycemia (principal); R80.9 Proteinuria, unspecified; E55.9 Vitamin D deficiency, unspecified
CPT/HCPCS: 36415; 80053; 80061; 82043; 82306; 82570; 83036; 84439; 84443; 85025

== ENCOUNTER → 2023-12-22 | Outpatient (CLI) | payer BC, SELFPAY ==
--- OUTSIDE RECORDS SUMMARY | 2023-12-22 14:45 | XMS RPT_ITS | CCD ---
Author Name Unknown Address [address] [place] [address] Organization [facility] Care Team Providers Care Concreting Supervisor Name Role Phone Unavailable Primary Care Provider UnavailYASMANY Tenorio J Referring Unavailable SHERRY, YASMANY J Referring Unavailable SHERRY, YASMANY J Referring Unavailable Unavailable Primary Care Provider Unavaillinus Chaney MD, [place] Primary Care Provider [phone] Usama GIRALDO, [place] Primary Care Provider [phone] Usama GIRALDO, [place] Primary Care Provider [phone] DUANE KERR Attending Unavailable DUANE KERR Admitting Unavailable USAMA, [place] Primary Care Unavailable SHERRY, YASMANY Attending Unavailable [facility], [facility] Primary Care Unavailable SHERRY, YASMANY Referring Unavailable USAAM, [facility] Primary Care Unavailable SHERRY, YASMANY Referring Unavailable USAMA, [facility] Primary Care Unavailable SHERRY, YASMANY Referring Unavailable SHERRY, YASMANY Attending Unavailable Medications Current Medications Medication Drug Class(es) Dates Sig (Normalized) Sig (Original) ALPRAZolam 0.5 mg oral tablet (2 sources) Benzodiazepine Start: 10-26-2022 End: 10-27-2022 ALPRAZolam (XANAX) 0.5 mg tablet Take 1 tablet by mouth as needed for up to 1 dose. To be administered prior to MRI for anxiolysis. 1 tablet 0 10/26/2022 10/27/2022 Active Completed/Discontinued Medications Medication Drug Class(es) Dates Sig (Normalized) Sig (Original) amLODIPine (16 sources) Dihydropyridine Calcium Channel Charlene AMLODIPINE BESYLATE (AMLODIPINE ORAL) Take by mouth. 0 Active Problems Problem Classification Problem Date Documented Date Episodic/Chronic Anxiety disorders (1 source) Claustrophobia; Translations: [Claustrophobia] 10-29-2023 Chronic Diabetes mellitus with complications (2 sources) Type 2 diabetes mellitus with hyperosmolarity without nonketotic hyperglycemic-hyperos molar coma ([facility]); Translations: [Type 2 diabetes mellitus with hyperglycemia] Onset: 03-19-2023 Chronic Disorders of lipid metabolism (1 source) Hyperlipidemia, unspecified; Translations: [Hyperlipoproteinemia ] Onset: 03-19-2023 Chronic Nutritional deficiencies (1 source) Vitamin D deficiency, unspecified; Translations: [Avitaminosis D] Onset: 03-19-2023 Chronic Spondylosis; intervertebral disc disorders; other back problems (15 sources) Spinal stenosis of lumbar region; Translations: [Spinal stenosis, lumbar region with neurogenic claudication] Onset: 10-26-2022 Episodic Results Test Name Value Interpretation Reference Range Facil ity Vital Signs Date Time Vital Sign Value Performing Clinician Bob doss 10-26-2022 14:06-0500 Diastolic blood pressure 75 mm[Hg] [facility] 10-26-2022 14:06-0500 Heart rate 97 /min [facility] 10-26-2022 14:06-0500 SaO2% (BldA) [Mass fraction] 97 % [facility] 10-26-2022 14:06-0500 Systolic blood pressure 155 mm[Hg] [facility] 08-06-2022 09:52-0400 Body height 175.3 cm Yasmany Gutierrez PA-C Work Phone: [facility] 08-06-2022 09:52-0400 Body weight 125.65 kg Yasmany Gutierrez PA-C Work Phone: [facility] Encounters Encounter Date Encounter Type Care Provider Facility Start: 12-15-2023 End: 12-15-2023 ambulatory [facility] Facility:[facility] Start: 12-02-2023 End: 12-02-2023 ambulatory [facility] Facility:[facility] Start: 11-17-2023 End: 11-17-2023 ambulatory [facility] Facility:[facility] Start: 10-27-2023 ambulatory Yasmany camacho PA-C Work Phone: [facility] Procedures Date Procedure Procedure Detail Performing Clinician Start: 03-19-2023 Lipid 1996 panel - S lance or Plasma Yasmany Gutierrez PA-C Work Phone: Start: 10-26-2022 Mri spinal canal lum bar w/o contrast material Yasmany uGtierrez PA-C Work Phone: Start: 08-04-2022 Adult depression screening assessment Yasmany Gutierrez PA-C Work Phone: Plan of Treatment Date Care Activity Detail Author Start: 03-19-2028 Lipid 1996 panel - Serum or Plasma Lipid Screening [facility] Start: 03-19-2028 Lipid panel Lipid Screening [facility] Start: 03-19-2028 LIPID SCREEN LIPID SCREEN [facility] Start: 08-10-2027 LIPID SCREEN LIPID SCREEN [facility] Start: 11-06-2026 LIPID SCREEN LIPID SCREEN [facility] Start: 03-19-2026 DIABETES SCREEN DIABETES SCREEN [facility] Start: 03-19-2026 Diabetes Screening Diabetes Screening [facility] Start: 08-10-2025 DIABETES SCREEN DIABETES SCREEN [facility] Start: 03-16-2025 DIABETES SCREEN DIABETES SCREEN [facility] Start: 08-04-2023 Adult depression screening assessment DEPRESSION SCREENING [facility] Start: 07-23-2023 Covid-19 Vaccine ( season) Covid-19 Vaccine ( season) [facility] Start: 07-23-2023 Influenza vaccination [facility] Start: 01-17-2023 COVID-19 VACCINE (6 - Moderna series) COVID-19 VACCINE (6 - Moderna series) [facility] Start: 11-22-2022 ADVANCE DIRECTIVE DISCUSSION ADVANCE DIRECTIVE DISCUSSION [facility] Start: 11-22-2022 DEPRESSION ASSESSMENT DEPRESSION ASSESSMENT [facility] Start: 07-23-2022 Influenza vaccination INFLUENZA (#1) [facility] Start: 07-18-2022 Urine microalbumin profile DTaP,Tdap,Td Vaccine (2 - Td or Tdap) [facility] Start: 05-11-2022 COVID-19 VACCINE (5 - Booster for Moderna series) COVID-19 VACCINE (5 - Booster for Moderna series) [facility] Start: 02-05-2022 COVID-19 VACCINE (4 - Booster for Moderna series) COVID-19 VACCINE (4 - Booster for Moderna series) [facility] Start: 11-22-2021 ADVANCE DIRECTIVE DISCUSSION ADVANCE DIRECTIVE DISCUSSION [facility] Start: 11-22-2021 DEPRESSION ASSESSMENT DEPRESSION ASSESSMENT [facility] Start: 2020 Pneumococcal Vaccine: 65+ (1 - PCV) Pneumococcal Vaccine: 65+ (1 - PCV) [facility] Start: 2020 PNEUMOCOCCAL: 65+ (1 - PCV) PNEUMOCOCCAL: 65+ (1 - PCV) [facility] Start: 2015 RSV Vaccine (1 - 1-dose 60+ series) RSV Vaccine (1 - 1-dose 60+ series) [facility] Start: 09-12-2012 Shingrix Vaccine (2 of 3) Shingrix Vaccine (2 of 3) [facility] Start: 2010 PROSTATE CANCER SCREENING DISCUSSION PROSTATE CANCER SCREENING DISCUSSION [facility] Start: 2010 Prostate specific antigen measurement Prostate Cancer Screening Discussion [facility] Start: 2005 SHINGRIX VACCINE (1 of 2) SHINGRIX VACCINE (1 of 2) [facility] Start: 2000 COLOGUARD (FIT-DNA) COLOGUARD (FIT-DNA) [facility] Start: 2000 Colonoscopy COLONOSCOPY [facility] Start: 2000 COLORECTAL CANCER SCREENING COLORECTAL CANCER SCREENING [facility] Start: [address] COLONOGRAPHY [facility] Start: 2000 FECAL OCCULT BLOOD FECAL OCCULT BLOOD [facility] Start: 2000 Screening for malignant neoplasm of colon [facility] Start: 2000 SIGMOIDOSCOPY SIGMOIDOSCOPY [facility] Start: 1974 Urine microalbumin profile [facility] Start: 1973 HEPATITIS C SCREENING HEPATITIS C SCREENING [facility] Start: 1973 Hepatitis C screening Hepatitis C Screening [facility] Start: 1967 Adult depression screening assessment DEPRESSION SCREENING [facility] End: 09-05-2023 Mri spinal canal lumbar w/o contrast material MRI LUMBAR SPINE WO IVCON Radiology Routine Spinal stenosis of lumbar region with neurogenic claudication 1 Occurrences starting 08/06/2022 until 09/05/2023 [facility] Work Phone: Immunizations Immunization Date Immunization Notes Care Provider Margo conner 09-01-2022 influenza virus vacc ine, unspecified formulation Yasmany Gutierrez PA-C Work Phone: [facility] Payers Date Payer Category Payer Unknown [id number] 2021 Unknown [id number] Social History Date Type Detail Facility Start: 02-10-2016 Tobacco smoking stat us NHIS Never smoked tobacco [facility] Start: 02-10-2016 Tobacco use and exposure Smoke less tobacco non-user [facility] Start: 02-10-2016 End: 08-06-2022 Alcohol intake Not Asked [facility] Start: 1955 Sex Assigned At Not on file [facility] Start: 07-31-2022 End: 10-26-2022 Exposure to SARS-CoV-2 (event) Not sure [facility] Start: 08-06-2022 End: 09-29-2023 History of Social function [facility] Start: 08-06-2022 End: 09-29-2023 Tobacco use panel [facility] Adult Depression Scr eening Assessment 0 [facility] Clinical Notes 08-04-2022 to 12-15-2023 Telephone Encounter - Yasmany Gutierrez PA-C - 10/29/2023 3:25 PM ESTTelephone Encounter - Jon Saldivar - 10/11/2023 11:33 AM Yasmany England PA-C - 09/29/2023 3:01 PM EST Note Date & Type Note Facility 12-15-2023 Note HNO ID: [id number] Author: YASMANY GUTIERREZ PA-C Service: ? Author Type: Physician Car Sales Representative Type: Progress Notes Filed: 12/15/2023 14:49 Note Text: Spine Surgery Established Last office visit: 09/29/23 HPI: Follow-up recent injection with Dr. Kirby, received great relief from injection for couple of weeks, continues with ~ 60 % improvement of his R buttock/leg pain Injection History: Surgery/Procedure Date: November 17, 2023 Interventionalist: Pravin Kirby DO Procedure(s): L3-4 interlaminar epidural steroid injection Surgery/Procedure Date: 08/12/2023 Surgeon: Duane Kerr DO Procedure(s): Interlaminar Epidural Injection L4-L5 Right paramedian approach Exam: Motor: 5/5 Sensory: intact Reflexes: intact Imaging: MRI lumbar spine (10/26/22): extensive degenerative changes with scoliosis; canal stenosis throughout the lower lumbar spine Assessment/Plan: R buttock, leg pain; lumbar spondylosis, stenosis; neurologically intact Plan for repeat BOBBI (L3-4 IL) with Dr. Kerr ([facility]) Consult Dr. 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 Author Type: Technologist Type: Progress Notes Filed: 12/02/2023 10:07 Note Text: Radiology Service Progress Note PATIENT NAME: Fransico Soriano DATE OF SERVICE: December 02, 2023 TIME: 10:07 AM PATIENT IDENTITY VERIFICATION COMPLETED USING TWO (2) IDENTIFIERS: Name and Date of confirmed by patient verbally. FALL SCREENING: Has the patient had 2 falls in the last year or 1 fall with injury or currently using an Ambulatory Assistive Device (Walker, Cane, Wheelchair, Crutches, etc.)? No PATIENT GENDER DATA: Male PATIENT RELEVANT IMPLANT DATA REVIEWED: Yes RADIOLOGY DEPARTMENT: MR; Exam(s) Completed: Spine: Lumbar spine PERIPHERAL IV DATA: Not applicable SIGNED BY: RT Shanti(R) December 02, 2023 10:07 AM [facility] 11-17-2023 Note HNO ID: [id number] Author: Pravin Kirby DO Service: ? Author Type: Physician Type: Procedures Filed: 11/17/2023 12:54 PM Note Text: PROCEDURE REPORT Surgery/Procedure Date: November 17, 2023 Interventionalist: Pravin Kirby DO Procedure(s): L3-4 interlaminar epidural steroid injection Pre-Op/Pre-Procedure Diagnosis: Lumbar spinal canal stenosis with neurogenic claudication Post-Op Diagnosis: same SUBJECTIVE: Fransico Soriano is a 68 year old male who presents to [facility] for a Lumbar epidural steroid injection. This is his first (1) procedure with or, but he had an L4-5 interlaminar epidural steroid injection with Dr. Kerr on 08/12/23. 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 68 year old male who presents with pain located lateral aspect of RLE and worsening of symptoms with ambulation. Pain today is 8/10. I have reviewed the nurses notes and am aware of the patient's history. OBJECTIVE: Vital signs are documented in the chart by nursing prior to and throughout the procedure. INFORMED CONSENT: Risks, benefits, alternatives and personnel discussed with patient who consents to proceed. A formal sign in and timeout with team members and patient present were performed prior to procedure start/delivery of medication. PROCEDURE: Procedure: Lumbar Epidural Steroid Injection Fransico Soriano was transferred to the Procedure Room. After placement of routine monitors (blood pressure, pulse oximetry, and heart rate monitored by dedicated nurse), the procedure was performed in the usual manner. Sedation: No. Start time: 1152 Stop time: 1208 Fluoroscopy time: 41 seconds Level: L3-L4 Technique: Patient positioned prone. Procedure area was prepped with Betadine and draped with sterile coverings. Entry point was identified utilizing fluoroscopic imaging. Entry point was anesthetized with 1% lidocaine. A left paramedian interlaminar approach was used with C-arm guidance. A #20 gauge Touhy needle was inserted and directed to appropriate location within the interlaminar window. Standard loss of resistance technique employed to identify epidural space. Aspiration revealed no blood or cerebrospinal fluid in the loss of resistance syringe. Syringe was removed and no CSF was visualized draining from needle. 2 cc of iohexol contrast was then injected. Fluoroscopic imaging was performed in two views and showed epidural flow pattern. A solution of 1% lidocaine 1.5 cc and Dexamethasone 15 mg was injected. No paresthesias or pain were experienced. The needle was then removed. Adequate hemostasis was obtained at the needle puncture site. The patient's back was cleaned and a sterile dressing was applied. Patient tolerated the procedure well and was taken conscious and in stable condition to the recovery room for observation. No complications as a result of this procedure. Post procedure precautions and instructions were reviewed with the patient who verbalized understanding. I/primary surgeon/proceduralist performed the procedure with the fellow. I was assisted by Sal Sawyer MD and was present at bedside throughout entire procedure. Tasks performed included steering needle to appropriate location, administering contrast, and injecting medication. No complications were encountered. Estimated blood loss: none Specimens: none Implanted devices: none Drains: none Post procedure physical exam unchanged from pre procedure. Significant findings: AP was oblique 10 to the right for the L3 vertebral body Caudal 15-20 to better visualize the L3-4 interlaminar window Oblique 5 right total for trajectory ASSESSMENT: Pre Procedure diagnosis: Lumbar spinal canal stenosis with neurogenic claudication Post-Procedure diagnosis: same Pre Procedure Pain Level: same as above Post Procedure Pain Level: As documented in nursing notes and paper chart Purposeful response to verbal or tactile stimulation: Yes PLAN: Patient is to complete post-procedure pain diary and contact office as follow-up in 2-3 weeks. Fransico Walker was transferred to the recovery room and is to be discharged home in stable condition. Post op instructions reviewed with patient. Pravin Kirby DO [facility] 11-17-2023 Note HNO ID: [id number] Author: Jeanne Sarmiento RN Service: ? Author Type: Registered Nurse Type: Progress Notes Filed: 11/17/2023 12:54 PM Note Text: NON-SEDATION PROCEDURE FORM November 17, 2023 7:36 AM Room Number: S7-729 Fluoroscopy suite ID verified: Yes Arrived via indpendent ambulation 68 year old Weight: Last 2 Encounter Wt Readings: Date: Wt: 08/06/2022 125.6 kg (277 lb) 02/10/2016 127.5 kg (281 lb) Indication for Procedure (Associated Diagnoses): low back pain Procedure ordered: Inter-laminar Lumbar epidural steroid injection: Midline; Level: L3-L4. Verified by patient by: Dr. Kirby Photograph Finisher for post spine injection procedure: Yes Patient mentation: alert, oriented, cooperative Yes Allergies: ALLERGIES No Known Allergies Pre-Procedural medication orders:N/A Patient Documented in med note. Pre-procedural orders Discharge / transfer when discharge assessment criteria met: Alert and oriented X3, moves all extremities X4, vital signs stable, injection site flat and dry. Able to ambulate as prior to procedure Sign In Communication: Allergies and medications reviewed. Site of the procedure confirmed:Yes Informed Consent Complete: Yes Relevent diagnostic tests reviewed (i.e., use of anticoagulants, INR, platelet count, imaging, etc.) Yes Critical Information: Proceduralist: Dr. Mirta Sawyer MD PROCEDURAL TIME OUT: Time out verification includes:Audible time-out documented: Yes. Time: 1148 Correct Patient: Two Patient Identifiers Correct side/ site marking, prep and dry time (If applicable) Accurate Consent Correct Procedure Correct Positioning Safety Precautions Based on Patient History or Medication Team agrees: correct patient, correct procedure, correct site, correct position UNIVERSAL PROTOCOL / SAFETY CHECKLIST Procedure to be Performed: Inter-laminar Lumbar epidural steroid injection: Midline; Level: L3-L4. Sign In: A Moment of CARE was completed. Personnel directly involved with the procedure wore the appropriate PPE (Personal Protective Equipment). No special equipment needed. Patient/Surrogate Stated/Verified: PATIENT VERIFIED(optional for EMERGENT procedures): Patient name, Date of , Relevant allergies, and The intended procedure Time Out Communication: Intended patient and procedure match the source documents. Consent documented and matches the intended procedure. Relevant labs, photos, and/or imaging studies have been reviewed. Correct side/site marked and visible. Medications required for procedure verified. No fire risk assessment and interventions applicable. No implant(s) inserted. Sign Out: SIGN OUT (optional for EMERGENT procedures): No specimen collected. Angelita Lopez RN Procedure Start time: 1152 Monitors On: NIBP Yes Pulse Oximetry Yes Site Prep: Povidone iodine, allowed to dry for 30 seconds Procedure Events: Vital Signs documented in activity above. Medications given, interventions, and notes: Time: BP Pulse R O2 Sat 1151 146/88 111 18 95 1155 161/88 115 18 96 1200 136/61 95 18 94 1205 135/78 93 18 93 Omnipaque (iohexol) 300mg/mL SDV volume 50 mL, Lidocaine 1% 10mg/mL SDV volume 30 mL Preservative-Free, and Dexamethasone Na phosphate 4mg/mL Preservative-Free Total Fluroscopy time:: 41 seconds. Procedure Finish Time: 1208 SIGN-OUT Dressings Applied to site(s): hypoallergenic transparent Tegaderm with absorbent nonadherent pad Abreu concerns for recovery and management of patient reviewed verbally prior to patient leaving procedure room. Post- Procedure Events: Vital Signs documented as below. Medications given, interventions, and notes as needed: Yes Time: BP Pulse R O2 Sat Pain scale 1213 137/62 94 18 96 2 AMBULATORY PATIENT EDUCATION TOPIC: PROCEDURE / SURGERY: Post Procedure Teaching: Symptom Management and Wound Care READINESS TO LEARN COGNITIVE ABILITY: Alert and oriented MOTIVATION TO LEARN: Eager FAMILY SUPPORT: Unable to assess - Family not present INSTRUCTION PROVIDED TO: Patient PATIENT LEARNS BEST BY: Individual Instruction Written Instruction - Hand-outs Verbal Instruction FACTORS AFFECTING LEARNING: None PHYSICAL LIMITATIONS AFFECTING LEARNING: None LEARNING RESPONSE METHOD OF INSTRUCTION: Teach Back post procedure instructions Individual instruction Written instruction - handouts Verbal instruction PATIENT / FAMILY RESPONSE: Verbalizes understanding of: POST-PROCEDURE INSTRUCTIONS-Correct actions to take to reduce post procedure complications Information received as demonstrated by interest and questions FOLLOW-UP PLAN: Patient instructed to call with any further issues SUPPLEMENTAL MATERIAL: Procedure discharge instructions REFERRAL (RECOMMENDATION): None Electronically Signed By Jeanne Sarmiento RN In Department: [facility] Discharge assessment: PAIN SCALE: 2 on a scale of 0-10 (0=none, 10=extreme) Discharge: Verbal (more content not included)... [facility] 11-17-2023 Note HNO ID: [id number] Author: Sal Sawyer MD Service: ? Author Type: Fellow Type: Progress Notes Filed: 11/17/2023 12:54 PM Note Text: PROCEDURAL HISTORY AND PHYSICAL EXAM SERVICE DATE and TIME: November 17, 2023 at 10:55 AM The History and Physical (completed in the past 30 days) has been reviewed and the patient has been examined. The contents accurately reflect the patient's condition with the following additions or revisions since the HANDP was completed. Patient referred by Yasmany Gutierrez. ASSESSMENT AND PLAN M48.062 Spinal stenosis of lumbar region with neurogenic claudication (primary encounter diagnosis) Patient here today for Inter-laminar Lumbar epidural steroid injection: Midline; Level: L3-L4. SUBJECTIVE HPI: This is a 68 year old male who presents with pain located lateral aspect of RLE and worsening of symptoms with ambulation. Pain today is 8/10. PAST MEDICAL HISTORY: PAST MEDICAL HISTORY Diagnosis Date BPH (benign prostatic hyperplasia) Diabetes mellitus type 2, uncomplicated (HCC) History of fatty infiltration of liver Hyperlipidemia Hypertension PAST SURGICAL HISTORY: PAST SURGICAL HISTORY Procedure Laterality Date PAST SURGICAL HISTORY OF foot fistula MEDICATIONS: Prior to Admission medications as of 09/29/23 1435 Medication Sig Last Dose Taking gabapentin (NEURONTIN) 300 mg capsule Take 2 capsules by mouth daily at bedtime for 60 days. diazePAM (VALIUM) 5 mg tablet Take 1 tablet 45 min prior to MRI, repeat dose if necessary, will need box truck driver DARLENE 5 mg/0.5 mL pen injector empagliflozin (JARDIANCE) 25 mg tablet Take 25 mg by mouth daily with breakfast. potassium chloride (KLOR-CON) 20 mEq packet Take by mouth twice daily. LOSARTAN/HYDROCHLOROTHIAZIDE (HYZAAR ORAL) Take by mouth. AMLODIPINE BESYLATE (AMLODIPINE ORAL) Take by mouth. Pitavastatin 4 mg tab Take by mouth. tamsulosin ER (FLOMAX) 0.4 mg cp24 Take 0.4 mg by mouth. canagliflozin (INVOKANA) 300 mg tablet Take by mouth daily before breakfast. pioglitazone (ACTOS) 30 mg tablet Take 30 mg by mouth once daily. metFORMIN ER (GLUMETZA) 1,000 mg 24 hr tablet Take 1,000 mg by mouth daily with breakfast. EXENATIDE MICROSPHERES (BYDUREON SUBCUTANEOUS) Inject subcutaneously. VITAMIN B COMPLEX ORAL Take by mouth. CALCIUM CARBONATE/VITAMIN D3 (VITAMIN D-3 ORAL) Take by mouth. VITAMIN E ORAL Take by mouth. ASCORBIC ACID (VITAMIN C ORAL) Take by mouth. naproxen (NAPROSYN) 500 mg tablet Take 1 tablet by mouth twice daily as needed (for pain/inflammation). Take with food. ALLERGIES: ALLERGIES No Known Allergies OBJECTIVE PHYSICAL EXAM: VITAL SIGNS: There were no vitals filed for this visit. AIRWAY: Patent, Full neck flexion and extension, Uvula visible RESP: Non-labored breathing. CV: Extremities are warm and well-perfused. Motor: Motor: 5/5 BLE HF, KF, KE, AD, EHL, PF The remainder of the physical exam is noncontributory. Risk, benefits, medications, personnel, and process of the procedure was explained to the patient with explicit agreement by patient or patient life assurance representative to proceed before procedure. SIGNATURE: Sal Sawyer MD PATIENT NAME: Fransico Soriano DATE: November 17, 2023 TIME: 10:55 AM [facility] 10-29-2023 Miscellaneous Notes Contacted patient, discussed his message sent to the office Given the severity of his symptoms, he is not sure he can wait until end of November for injection with [place] He is interested in doing the injection at if it can be done sooner, will order and routed to scheduling team at I do think updated MRI is also warranted, this has been ordered and routed to scheduling. He was given valium po to take prior to MRI for claustrophobia If no improvement with injection will plan for surgical consult documented in this encounter [facility] 10-11-2023 Miscellaneous Notes Patient scheduled for a procedure on 12/22/23 in the [facility]. Pt instructed that a box truck driver must remain present during the entire procedure. -is patient on home oxygen therapy No - nothing to eat after midnight before the procedure - may have clear liquids on day of procedure up until 2 hours prior to procedure - to take all routine medications for heart, hypertension and seizures can be taken with a small amount of water up to 2 hours prior to procedure. - discontinue anti-inflammatory medications, Aspirin products and all Vitamins 5 days prior to procedure: - no pain medication 6 hours prior to procedure. Is patient diabetic? Yes Is patient currently taking Coumadin, Pletal, Plavix, Rheopro, Ticlid, Lovenox, Heparin, or any other blood thinners? REVIEWED BY PROVIDER: , no Is patient allergic to Latex, shellfish, seafood, iodine, contrast dye, steroids or local anesthetics? No Does patient have a history of pacemaker or internal defibrillator, or seizure disorder?No Pt verbalized understanding of above instructions: Yes Printed instructions handed to patient: No My Sourceboxhart message sent with instructions:Yes Order entered for L3-4 IL injection Imaging reviewed with Dr. Kerr 10/08 Message sent to Yfn for scheduling injection Yasmany Gutierrez PA-C Spine Surgery documented in this encounter [facility] 09-29-2023 Note HNO ID: [id number] Author: Yasmany Gutierrez PA-C Service: ? Author Type: Physician Car Sales Representative Type: Progress Notes Filed: 09/30/2023 8:22 AM Note Text: Spine Surgery Established Last office visit: 08/06/22 HPI: Follow-up recent injection with Dr. Kerr Surgery/Procedure Date: 08/12/2023 Surgeon: Duane Kerr DO Procedure(s): Interlaminar Epidural Injection L4-L5 Right paramedian approach Patient did have significant relief for 1-2 days post-procedure and then symptoms returned to baseline, and have progressed in the past 3-4 weeks to more severe pain down the R buttock, lateral thigh to the knee Worse with standing/walking, improved with sitting He does have difficulty laying down at night Denies any LLE radicular symptoms at this time Exam: Motor: 5/5 Sensory: intact Reflexes: intact Imaging: MRI lumbar spine (10/26/22): extensive degenerative changes with scoliosis; canal stenosis throughout the lower lumbar spine Assessment/Plan: R buttock, leg pain; lumbar spondylosis, stenosis; neurologically intact Discussed consideration of repeat injection, may consider L3-[address] Kerr Trial of gabapentin for the nerve pain, he will follow-up in 1 week with an updated on effectiveness/tolerance Yasmany Gutierrez PA-C Spine Surgery A total of 30 minutes pmei-[id number] time was spent reviewing patients imaging, examining the patient, and discussing further treatment options. [facility] 09-29-2023 History of Presen t illness Narrative Spine Surgery Established Last office visit: 08/06/22 HPI: Follow-up recent injection with Dr. Kerr Surgery/Procedure Date: 08/12/2023 Surgeon: Duane Kerr DO Procedure(s): Interlaminar Epidural Injection L4-L5 Right paramedian approach Patient did have significant relief for 1-2 days post-procedure and then symptoms returned to baseline, and have progressed in the past 3-4 weeks to more severe pain down the R buttock, lateral thigh to the knee Worse with standing/walking, improved with sitting He does have difficulty laying down at night Denies any LLE radicular symptoms at this time Exam: Motor: 5/5 Sensory: intact Reflexes: intact Imaging: MRI lumbar spine (10/26/22): extensive degenerative changes with scoliosis; canal stenosis throughout the lower lumbar spine Assessment/Plan: R buttock, leg pain; lumbar spondylosis, stenosis; neurologically intact Discussed consideration of repeat injection, may consider L3-[address] Kerr Trial of gabapentin for the nerve pain, he will follow-up in 1 week with an updated on effectiveness/tolerance Yasmany Gutierrez PA-C Spine Surgery A total of 30 minutes [id number] time was spent reviewing patients imaging, examining the patient, and discussing further treatment options. documented in this encounter [facility] 09-24-2023 Miscellaneous Notes Spoke with patient. See Telephone encounter 09/23/23 documented in this encounter [facility] 08-18-2023 Miscellaneous Notes Patients called to ask if the appointment her has scheduled for tomorrow is too soon after his procedure. Please advise documented in this encounter [facility] 07-29-2023 Miscellaneous Notes Called and spoke with patient. Discussed medication guidelines for upcoming procedure. Patient verbalizes understanding. Information sent on Appsee for review. No other questions or concerns. documented in this encounter [facility] 11-05-2022 Miscellaneous Notes Injection order for Dr. Kerr LEFT paramedian L4-5 BOBBI Await patient response on proceeding prior to scheduling Yasmany Gutierrez PA-C Spine Surgery documented in this encounter [facility] 09-07-2022 Miscellaneous Notes Returned call to # provided, was patients #. Spoke with patient, informed r d internship was not able to schedule MRI due to incorrect, conflicting information? Unable to contact [facility] schedulers. Called radiology scheduling, states order looks ok, unsure reason for call, will forward to incoming freight clerk to contact patient. Eufemia Muñiz RN Tabbetha with scheduling is calling pertaining MRI order PA placed Tabbetha states a whole new MRI order is need due conflicting comments Tabbetha states order need to be IV sedation or anesthesia Tabbetha is requesting to call patient back when order is placed [phone] documented in this encounter [facility] 09-04-2022 Miscellaneous Notes I would not recommend open MRI for spine I have placed the order for MRI with IV sedation per patient request Yasmany Gutierrez PA-C Spine Surgery Spoke with patient. States never had an MRI in past. Did not know he was claustrophobic. Took him 2 days to be able to call us due to being so upset with experience. [place] location is under construction and MRI's are being done in a small trailer which added to anxiety. Discussed options to repeat MRI - asking if could try an open MRI? Is willing to try IV Sedation? Does not think oral Valium will be enough. Did discuss under general anesthesia as well. Forward to JULIUS for new MRI order under IV sedation. Patient has scheduling # to call, will wait until tomorrow to call an schedule. Unless open MRI ok, Nurse will contact him back. Eufemia Muñiz RN Pt returned call to RN: he could not complete the MRI due to claustrophobia. Please call him back at ph: [phone] Neuro SPINE CARE COORDINATION QUICK NOTE Reviewed chart. Appt scheduling note indicates pt left MRI without being seen. Call to pt to gather more information. No answer. LVM with office number for call back. Carolin Dominguez RN Logistic Manager ----- Message from Yasmany Gutierrez PA-C sent at 09/01/2022 10:00 AM EDT ----- Eufemia Can you check on if this MRI was completed, it looks like from appointments he was checked in, no images available outside of his lumbar XR, and I need to review the MRi with Dr. Kerr tomorrow or Th Thank you Al documented in this encounter [facility] 08-27-2022 History of Presen t illness Narrative Radiology Service Progress Note PATIENT NAME: Fransico Soriano DATE OF SERVICE: August 27, 2022 TIME: 8:34 AM PATIENT IDENTITY VERIFICATION COMPLETED USING TWO (2) IDENTIFIERS: Name and Date of confirmed by patient verbally. FALL SCREENING: Has the patient had 2 falls in the last year or 1 fall with injury or currently using an Ambulatory Assistive Device (Walker, Cane, Wheelchair, Crutches, etc.)? No PATIENT GENDER DATA: Male PATIENT RELEVANT IMPLANT DATA REVIEWED: Not Applicable RADIOLOGY DEPARTMENT: General X-ray: Exam(s) Completed: Spine X-Ray(s): Lumbar AP / LAT / L5-S1 / FLEX-EXT PERIPHERAL IV DATA: Not applicable SIGNED BY: RT Carmela(R) August 27, 2022 8:34 AM documented in this encounter [facility] 08-06-2022 History of Presen t illness Narrative Images from the original note were not included. SPINE SURGERY OUTPATIENT CONSULT SERVICE DATE: 08/06/2022 PCP: No primary care provider on file. REFERRING PROVIDER: SELF SUBJECTIVE Fransico Soriano is a 67 year old male presenting with spouse. CHIEF COMPLAINT: low back pain, LEFT leg pain HISTORY OF PRESENT ILLNESS: Presents to spine center for chronic low back pain, which radiates to the LEFT buttock and lateral thigh down to the knee Associated with numbness down the LEFT lateral thigh Worse with standing, walking, he obtains relief after sitting for 2-3 minutes, no issues when he is sitting Symptoms initially began 4 yrs ago, slowly progressed since that time PRECIPITATING EVENT: None DURATION OF SYMPTOMS: Progressive 4 yrs PAIN EVALUATION 08/06/2022 0945 Pain Level: 2 2-7 Description: Dull;Sharp;Numbness Duration Amount of Time: 4 Duration Units: Months Frequency: Continuous Intervention/Comfort measure: Medication Comments: ride bikes DERMATOMAL DISTRIBUTION: Left: L4 and L5 AMBULATORY STATUS: Independent Community Distances ANTIPLATELET OR ANTICOAGULATION STATUS: No PREVIOUS CONSERVATIVE TREATMENTS: Physical therapy Home exercises from PT PREVIOUS SPINAL SURGERY: None PAST MEDICAL HISTORY Diagnosis Date BPH (benign prostatic hyperplasia) Diabetes mellitus type 2, uncomplicated (HCC) History of fatty infiltration of liver Hyperlipidemia Hypertension PAST SURGICAL HISTORY Procedure Laterality Date PAST SURGICAL HISTORY OF foot fistula No family history on file. Social History Tobacco Use Smoking status: Never Smokeless tobacco: Never ALLERGIES No Known Allergies MEDICATIONS: empagliflozin (JARDIANCE) 25 mg tablet Take 25 mg by mouth daily with breakfast. potassium chloride (KLOR-CON) 20 mEq packet Take by mouth twice daily. LOSARTAN/HYDROCHLOROTHIAZIDE (HYZAAR ORAL) Take by mouth. AMLODIPINE BESYLATE (AMLODIPINE ORAL) Take by mouth. Pitavastatin 4 mg tab Take by mouth. tamsulosin ER (FLOMAX) 0.4 mg cp24 Take 0.4 mg by mouth. pioglitazone (ACTOS) 30 mg tablet Take 30 mg by mouth once daily. metFORMIN ER (GLUMETZA) 1,000 mg 24 hr tablet Take 1,000 mg by mouth daily with breakfast. VITAMIN B COMPLEX ORAL Take by mouth. CALCIUM CARBONATE/VITAMIN D3 (VITAMIN D-3 ORAL) Take by mouth. VITAMIN E ORAL Take by mouth. ASCORBIC ACID (VITAMIN C ORAL) Take by mouth. naproxen (NAPROSYN) 500 mg tablet Take 1 tablet by mouth twice daily as needed (for pain/inflammation). Take with food. canagliflozin (INVOKANA) 300 mg tablet Take by mouth daily before breakfast. EXENATIDE MICROSPHERES (BYDUREON SUBCUTANEOUS) Inject subcutaneously. Patient Entered Questionnaires Spine Questions 08/04/2022 Pain Location: Lower back Pain Duration: 1 to 5 years Pain over last 6 months: Every day or nearly every day in the past 6 months Symptoms from neck/cervical spine: No Employment Status: Retired Involved in law suit/legal claim: No Spine Red Flags 08/04/2022 Any type of cancer: No Unexplained fever: No Bowel or bladder disfunction: No Unintentional weight loss: No Osteoporosis: No PROMIS Score Percentiles Physical Health 08/04/2022 Physical Function Percentile 16* Sleep Percentile 27* Fatigue Percentile 42 Pain Interference Percentile 10 PROMIS SOCIAL ROLE SCORE 08/04/2022 Social Role Satisfaction Percentile 38 PROMIS Global Health Scale 08/04/2022 Physical Health Percentile 41 Mental Health Percentile 43 Percentiles provide an indication of how the patient's score ranks in relation to the general population. Higher percentile rankings indicate better function/quality of life. 50th percentile is the average of the general population and indicates half of respondents had a worse score. Depression Screening: PHQ-9 08/04/2022 Score 2 PHQ-9 Self-harm Question 08/04/2022 Thoughts that you would be better off , or of hurting yourself in some way 0 PHQ-9 Self-Harm (Item 9) response options: 0 Not at all 1 Several days 2 More than half the days 3 Nearly every day PHQ-9 Levels: 0-4 No to mild depression 5-9 Mild depression 10-14 Moderate depression 15-19 Moderately severe depression 20-27 Severe depression OBJECTIVE: PHYSICAL EXAM Ht 175.3 cm (5' 9 ) Wt 125.6 kg (277 lb) BMI 40.91 kg/m GENERAL APPEARANCE: Obese. NEURO PSYCH: Patient oriented to person, place, and time. Mood pleasant. Benign affect. MUSCULOSKELETAL VISUAL INSPECTION CERVICAL: WNL THORACIC: WNL LUMBAR: WNL MOTOR: 5/5 in all muscle groups. SENSORY: Normal sensory exam GAIT: Normal. REFLEXES: +2 to bilateral U/L extremities. LONG TRACT SIGNS: No clonus DATA REVIEW: no recent spine imaging for review ASSESSMENT/PLAN Low back pain, LEFT buttock/leg pain; lumbar stenosis XR lumbar spine MRI lumbar spine Follow-up after MRI to determine injection The majority of the visit was spent counseling and/or coordinating care for the patient. The patient was counseled regarding lumbar spine. Total face to face time was 45 minutes. SIGNATURE: Yasmany Gutierrez PA-C PATIENT NAME: Fransico Soriano DATE: August 06, 2022 TIME: 10:11 AM PAGER: documented in this encounter [facility] 08-04-2022 Miscellaneous Notes Seeing JULIUS 08/06/22, imaging and repost here 06/09/19 lumbar xray. Eufemia Muñiz RN Received the following record(s) via Fax. -xray(report) Date 06/09/19 Record(s) scanned into pt's chart. Leandra Coleman documented in this encounter [facility] Spinal stenosis of lumbar region with neurogenic claudication Spinal stenosis, lumbar region, with neurogenic claudication [facility] Diagnosis Spinal stenosis of lumbar region with neurogenic claudication- Primary Spinal stenosis, lumbar region, with neurogenic claudication [facility] Diagnosis Spinal stenosis of lumbar region with neurogenic claudication Spinal stenosis, lumbar region, with neurogenic claudication [facility] Diagnosis Spinal stenosis, lumbar region with neurogenic claudication- Primary [facility] Diagnosis Spinal stenosis of lumbar region with neurogenic claudication- Primary Spinal stenosis, lumbar region, with neurogenic claudication [facility] Diagnosis Spinal stenosis, lumbar region with neurogenic claudication- Primary Lumbosacral neuritis Thoracic or lumbosacral neuritis or radiculitis, unspecified Lumbosacral neuritis Thoracic or lumbosacral neuritis or radiculitis, unspecified [facility] Diagnosis Spinal stenosis of lumbar region with neurogenic claudication- Primary Spinal stenosis, lumbar region, with neurogenic claudication Spinal stenosis, lumbar region with neurogenic claudication Claustrophobia Other isolated or specific phobias documented in this encounter [facility] for referral (narrative)* Diagnostic Procedure Only (Routine) - Closed Specialty Diagnoses / Procedures Referred By Contac t Referred To Contact XR IMAGING Diagnoses Spinal stenosis of lumbar region with neurogenic claudication Procedures XR LUMBAR MOTION 4V AP/LAT/ FLEX/EXT RADEX SPINE LUMBOSACRAL MINIMUM 4 VIEWS Yasmany Gutierrez PA-C [address] [place] [address] Xr Imaging Referral ID Status Reason Start Date Expiration Date V isits Requested Visits Authorized [id number] Closed Auto-Generate d Referral 08/06/2022 09/05/2023 1 1 [facility] for visit Narrative* Diagnostic Procedure Only (Routine) - Closed Specialty Diagnoses / Procedures Referred By Contac t Referred To Contact XR IMAGING Diagnoses Spinal stenosis of lumbar region with neurogenic claudication Procedures XR LUMBAR MOTION 4V AP/LAT/ FLEX/EXT RADEX SPINE LUMBOSACRAL MINIMUM 4 VIEWS Yasmany Gutierrez PA-C [address] [place] [address] Xr Imaging Referral ID Status Reason Start Date Expiration Date V isits Requested Visits Authorized [id number] Closed Auto-Generate d Referral 08/06/2022 09/05/2023 1 1 [facility] Reason for Referral Specialty Diagnoses / Procedures Referred By Contac t Referred To Contact MR IMAGING Diagnoses Spinal stenosis of lumbar region with neurogenic claudication Procedures MRI LUMBAR SPINE WO IVCON MRI SPINAL CANAL LUMBAR W/O CONTRAST MATERIAL Yasmany Gutierrez PA-C [address] [place] [address] Mr Imaging Referral ID Status Reason Start Date Expiration Date Visits Requested Visits Authorized [id number] Additional Clinical Info Needed Auto-Generat ed Referral 08/06/2022 09/05/2023 1 1 Specialty Diagnoses / Procedures Referred By Contac t Referred To Contact XR IMAGING Diagnoses Spinal stenosis of lumbar region with neurogenic claudication Procedures XR LUMBAR MOTION 4V AP/LAT/ FLEX/EXT RADEX SPINE LUMBOSACRAL MINIMUM 4 VIEWS Yasmany Gutierrez PA-C [address] [place] [address] Xr Imaging Referral ID Status Reason Start Date Expiration Date Visits Requested Visits Authorized [id number] Authorized Auto-Generat ed Referral 08/06/2022 09/05/2023 1 1 Referral ID Status Reason Start Date Expiration Date Visits Requested Visits Authorized [id number] Pending Review Auto-Generat ed Referral 10/04/2023 1 1 Referral ID Status Reason Start Date Expiration Date V isits Requested Visits Authorized [id number] Closed Auto-Generate d Referral 11/22/2021 11/21/2022 1 1 Specialty Diagnoses / Procedures Referred By Contramu t Referred To Contact MR IMAGING Diagnoses Spinal stenosis, lumbar region with neurogenic claudication Procedures MRI LUMBAR SPINE WO IVCON MRI SPINAL CANAL LUMBAR W/O CONTRAST MATERIAL Yasmany Gutierrez PA-C [address] [place] [id number] [facility] [place] [id number] Referral ID Status Reason Start Date Expiration Date Visits Requested Visits Authorized [id number] Authorized Auto-Generat ed Referral 10/29/2023 11/27/2024 1 1 Summary Purpose Family History No Family History Records FoundNo Family History Records Found Advance Directives No Advanced Directives Records FoundNo Advanced Directives Records Found Medications Administered Section Inactive Administered Medications - up to 3 most recent administrations Medication Order MAR Action Action Date Dose Rate Site ALPRAZolam 0.5 mg tab(s) (XANAX) 0.5 mg, ORAL, ONCE DAILY NEEDED, Starting on 10/26/22 at 1314, Until Wed10/27/22 at 0410, Anxiety - First Line - Enteral, Intraprocedure Given 10/26/2022 1:19 PM EST 0.5 mg Additional Source Comments Source Comments (unrecognize d section and content) In the event this informatio n is protected by the Federal Confidentiality of Alcohol and Drug Abuse Patient Records regulations: The Federal rules restrict any use of the information to criminally investigate or prosecute any alcohol or drug abuse patient.[facility] the event this information is protected by the Federal Confidentiality of Alcohol and Drug Abuse Patient Records regulations: The Federal rules restrict any use of the information to criminally investigate or prosecute any alcohol or drug abuse patient.[facility] the event this information is protected by the Federal Confidentiality of Alcohol and Drug Abuse Patient Records regulations: The Federal rules restrict any use of the information to criminally investigate or prosecute any alcohol or drug abuse patient.[facility] the event this information is protected by the Federal Confidentiality of Alcohol and Drug Abuse Patient Records regulations: The Federal rules restrict any use of the information to criminally investigate or prosecute any alcohol or drug abuse patient.[facility] the event this information is protected by the Federal Confidentiality of Alcohol and Drug Abuse Patient Records regulations: The Federal rules restrict any use of the information to criminally investigate or prosecute any alcohol or drug abuse patient.[facility] the event this information is protected by the Federal Confidentiality of Alcohol and Drug Abuse Patient Records regulations: The Federal rules restrict any use of the information to criminally investigate or prosecute any alcohol or drug abuse patient.[facility] the event this information is protected by the Federal Confidentiality of Alcohol and Drug Abuse Patient Records regulations: The Federal rules restrict any use of the information to criminally investigate or prosecute any alcohol or drug abuse patient.[facility] the event this information is protected by the Federal Confidentiality of Alcohol and Drug Abuse Patient Records regulations: The Federal rules restrict any use of the information to criminally investigate or prosecute any alcohol or drug abuse patient.[facility] the event this information is protected by the Federal Confidentiality of Alcohol and Drug Abuse Patient Records regulations: The Federal rules restrict any use of the information to criminally investigate or prosecute any alcohol or drug abuse patient.[facility] the event this information is protected by the Federal Confidentiality of Alcohol and Drug Abuse Patient Records regulations: The Federal rules restrict any use of the information to criminally investigate or prosecute any alcohol or drug abuse patient.[facility] the event this information is protected by the Federal Confidentiality of Alcohol and Drug Abuse Patient Records regulations: The Federal rules restrict any use of the information to criminally investigate or prosecute any alcohol or drug abuse patient.[facility] the event this information is protected by the Federal Confidentiality of Alcohol and Drug Abuse Patient Records regulations: The Federal rules restrict any use of the information to criminally investigate or prosecute any alcohol or drug abuse patient.[facility] the event this information is protected by the Federal Confidentiality of Alcohol and Drug Abuse Patient Records regulations: The Federal rules restrict any use of the information to criminally investigate or prosecute any alcohol or drug abuse patient.[facility] the event this information is protected by the Federal Confidentiality of Alcohol and Drug Abuse Patient Records regulations: The Federal rules restrict any use of the information to criminally investigate or prosecute any alcohol or drug abuse patient.[facility] the event this information is protected by the Federal Confidentiality of Alcohol and Drug Abuse Patient Records regulations: The Federal rules restrict any use of the information to criminally investigate or prosecute any alcohol or drug abuse patient.[facility] the event this information is protected by the Federal Confidentiality of Alcohol and Drug Abuse Patient Records regulations: The Federal rules restrict any use of the information to criminally investigate or prosecute any alcohol or drug abuse patient.[facility] Reason for Visit (unrecogniz ed section and content) Reason Comments New Patient Reason Comments Return Provider Call Reason Comments Appointment Specialty Diagnoses / Procedures Referred By Fidelia syed Referred To Contact MR IMAGING Diagnoses Spinal stenosis of lumbar region with neurogenic claudication Procedures MRI LUMBAR SPINE WO IVCON MRI SPINAL CANAL LUMBAR W/O CONTRAST MATERIAL Yasmany Gutierrez, SHAMIKA [address] [place] [address] Mr Imaging Referral ID Status Reason Start Date Expiration Date V isits Requested Visits Authorized [id number] Closed Auto-Generate d Referral 11/22/2021 11/21/2022 1 1 Reason Comments Preparations For Procedures Reason Comments Patient Question Reason Comments Follow Up Spinal injection (unrecognized sect ion and content) No Status Records FoundNo Status Records Found INFORMATION SOURCE (unrecogn ized section and content) DATE CREATED AUTHOR AUTHOR'S ORGANIZ ATION 12/16/2023 [facility] Care Teams (unrecognized sec tion and content) Concreting Supervisor Relationship Specialty Start Date End Date Enid Chaney MD [address] [place] [address] PCP - General Internal Medicine 08/10/23 Concreting Supervisor Relationship Specialty Start Date End Date Enid Chaney MD [address] [place] [address] PCP - General Internal Medicine 08/10/23 Concreting Supervisor Relationship Specialty Start Date End Date Enid Chaney MD [address] [place], [place] [id number] PCP - General Internal Medicine 08/10/23 Concreting Supervisor Relationship Specialty Start Date End Date Enid Chaney MD [address] [place], [place] [id number] (work) PCP - General Internal Medicine 08/10/23 FOR RECORDS PERTAINING TO PATIENTS WHO ARE OR HAVE BEEN ENROLLED IN A CHEMICAL DEPENDENCY/SUBSTANCEABUSE PROGRAM, SOME INFORMATION MAY BE OMITTED. This clinical summary was aggregated from multiple sources. Caution should be exercised in using it in the provision of clinical care. This summary normalizes information from multiple sources, and as a consequence, information in this document may materially change the coding, format and clinical context of patient data. In addition, data may be omitted in some cases. CLINICAL DECISIONS SHOULD BE BASED ON THE PRIMARY CLINICAL RECORDS. [facility]. provides no warranty or guarantee of the accuracy or completeness of information in this document.
[2023-12-22 15:28] LABS: Urine Chloride 78 mmol/L (Not Establ.); Urine Sodium 46 mmol/L (Not Establ.)
[2023-12-22 15:49] LABS: Magnesium 2.5 mg/dL (1.6-2.6); Potassium 3.1 mmol/L (3.5-5.1)
[2023-12-22 17:37] LABS: Osmolality, Serum 289 mOsm/KG (280-301)
[2023-12-22 17:38] LABS: Osmolality, Urine 427 mOsm/KG
[2023-12-29 17:07] LABS: ALDOSTERONE/RENIN RATIO 5.3 (0.0-30.0); Aldosterone, Serum 10.1 ng/dL (0.0-30.0); Renin, Plasma 1.921 ng/mL/hr (0.167-5.380)
== END | disposition home or self-care (01) ==
LOC: POLAB3 14:00
PROVIDERS: PCP Family Medicine; Visit Provider Internal Medicine Nephrology
DX: E87.6 Hypokalemia (principal)
CPT/HCPCS: 36415; 82088; 82436; 83735; 83930; 83935; 84132; 84133; 84244; 84300

== ENCOUNTER → 2023-12-29 | Outpatient (CLI) | payer BC, SELFPAY ==
--- NOTE | 2023-12-29 11:50 | US_ITS ---
STUDY: RENAL ULTRASOUND - COMPLETE REASON FOR EXAM: Male, 68 years old. HYPOKALEMIA TECHNIQUE: Ultrasound evaluation of the kidneys was performed with real-time and static figueroa-scale imaging. COMPARISON: None. FINDINGS: RIGHT KIDNEY: Normal location of the right kidney, which is normal in size. The right kidney measures 11.9 cm x 5.4 cm x 5.2 cm. There is a normal cortex of the right kidney. The renal cortex measures 1.5 cm. There is no right renal mass or cyst. There are no right renal calculi. There is no right hydronephrosis. DISTAL RIGHT URETER: There is non-visualization of the distal right ureter. There is no demonstrated right ureterovesical junction calculus. There is a visualized right ureteral jet. LEFT KIDNEY: Normal location of the left kidney, which is normal in size. The left kidney measures 12.4 cm x 4.6 x 5.5 cm. There is a normal cortex of the left kidney. The renal cortex measures 2.0 cm. There is no left renal mass or cyst. There are no left renal calculi. There is no left hydronephrosis. DISTAL LEFT URETER: There is non-visualization of the distal left ureter. There is no demonstrated left ureterovesical junction calculus. There is a visualized left ureteral jet. BLADDER: The distended urinary bladder has a volume of 367 ml. There is a normal wall thickness of the distended urinary bladder. There is no demonstrated mass within the urinary bladder. There are no demonstrated bladder calculi. US/Kidney and Bladder IMPRESSION: Normal ultrasound of the kidneys and urinary bladder. Electronically Signed: Pancho Petty MD at 15:15 EST ,
--- OUTSIDE RECORDS SUMMARY | 2023-12-29 16:19 | XMS RPT_ITS | CCD ---
Author Name Unknown Address [address] [place] [address] Organization [facility] Care Team Providers Care Sausage Wrapper Name Role Phone Unavailable Primary Care Provider UnavailYASMANY Tenorio J Referring Unavailable SHERRY, YASMANY J Referring Unavailable SHERRY, YASMANY J Referring Unavailable Unavailable Primary Care Provider Unavaillnius Chaney MD, [place] Primary Care Provider [phone] Usama GIRALDO, [place] Primary Care Provider [phone] Usama GIRALDO, [place] Primary Care Provider [phone] DUANE KERR Attending Unavailable DUANE KERR Admitting Unavailable USAMA, [place] Primary Care Unavailable SHERRY, YASMANY Attending Unavailable [facility], [facility] Primary Care Unavailable SHERRY, YASMANY Referring Unavailable USAMA, [facility] Primary Care Unavailable SHERRY, YASMANY Referring Unavailable USAMA, [facility] Primary Care Unavailable SHERRY, YASMANY Referring Unavailable [...] 10-26-2022 14:06-0500 Diastolic blood pressure 75 mm[Hg] [facility] 10-26-2022 14:06-0500 Heart rate 97 /min [facility] 10-26-2022 14:06-0500 SaO2% (BldA) [Mass fraction] 97 % [facility] 10-26-2022 14:06-0500 Systolic blood pressure 155 mm[Hg] [facility] 08-06-2022 09:52-0400 Body height 175.3 cm Yasmany Gutierrez PA-C Work Phone: [facility] 08-06-2022 09:52-0400 Body weight 125.65 kg Yasmany Gutierrez PA-C Work Phone: [facility] Encounters Encounter Date Encounter Type Care Provider Facility Start: 12-15-2023 End: 12-15-2023 ambulatory [facility] Facility:[facility] Start: 12-02-2023 End: 12-02-2023 ambulatory [facility] Facility:[facility] Start: 11-17-2023 End: 11-17-2023 ambulatory [facility] Facility:[facility] Start: 10-27-2023 ambulatory Yasmany camacho PA-C Work Phone: [facility] Procedures Date Procedure Procedure Detail Performing Clinician Start: 03-19-2023 Lipid 1996 panel - S lance or Plasma Yasmany Gutierrez PA-C Work Phone: Start: 10-26-2022 Mri spinal canal lum bar w/o contrast material Yasmany Gutierrez PA-C Work Phone: Start: 08-04-2022 Adult depression screening assessment Yasmany Gutierrez PA-C Work Phone: Plan of Treatment Date Care Activity Detail Author Start: 03-19-2028 Lipid 1996 panel - Serum or Plasma Lipid Screening [facility] Start: 03-19-2028 Lipid panel Lipid Screening [facility] Start: 03-19-2028 LIPID SCREEN LIPID SCREEN [facility] Start: 08-10-2027 LIPID SCREEN LIPID SCREEN [facility] Start: 11-06-2026 LIPID SCREEN LIPID SCREEN [facility] Start: 03-19-2026 DIABETES SCREEN DIABETES SCREEN [facility] Start: 03-19-2026 Diabetes Screening Diabetes Screening [facility] Start: 08-10-2025 DIABETES SCREEN DIABETES SCREEN [facility] Start: 03-16-2025 DIABETES SCREEN DIABETES SCREEN [facility] Start: 08-04-2023 Adult depression screening assessment DEPRESSION SCREENING [facility] Start: 07-23-2023 Covid-19 Vaccine ( season) Covid-19 Vaccine ( season) [facility] Start: 07-23-2023 Influenza vaccination [facility] Start: 01-17-2023 COVID-19 VACCINE (6 - Moderna series) COVID-19 VACCINE (6 - Moderna series) [facility] Start: 11-22-2022 ADVANCE DIRECTIVE DISCUSSION ADVANCE DIRECTIVE DISCUSSION [facility] Start: 11-22-2022 DEPRESSION ASSESSMENT DEPRESSION ASSESSMENT [facility] Start: 07-23-2022 Influenza vaccination INFLUENZA (#1) [facility] Start: 07-18-2022 Urine microalbumin profile DTaP,Tdap,Td Vaccine (2 - Td or Tdap) [facility] Start: 05-11-2022 COVID-19 VACCINE (5 - Booster for Moderna series) COVID-19 VACCINE (5 - Booster for Moderna series) [facility] Start: 02-05-2022 COVID-19 VACCINE (4 - Booster for Moderna series) COVID-19 VACCINE (4 - Booster for Moderna series) [facility] Start: 11-22-2021 ADVANCE DIRECTIVE DISCUSSION ADVANCE DIRECTIVE DISCUSSION [facility] Start: 11-22-2021 DEPRESSION ASSESSMENT DEPRESSION ASSESSMENT [facility] Start: 2020 Pneumococcal Vaccine: 65+ (1 - PCV) Pneumococcal Vaccine: 65+ (1 - PCV) [facility] Start: 2020 PNEUMOCOCCAL: 65+ (1 - PCV) PNEUMOCOCCAL: 65+ (1 - PCV) [facility] Start: 2015 RSV Vaccine (1 - 1-dose 60+ series) RSV Vaccine (1 - 1-dose 60+ series) [facility] Start: 09-12-2012 Shingrix Vaccine (2 of 3) Shingrix Vaccine (2 of 3) [facility] Start: 2010 PROSTATE CANCER SCREENING DISCUSSION PROSTATE CANCER SCREENING DISCUSSION [facility] Start: 2010 Prostate specific antigen measurement Prostate Cancer Screening Discussion [facility] Start: 2005 SHINGRIX VACCINE (1 of 2) SHINGRIX VACCINE (1 of 2) [facility] Start: 2000 COLOGUARD (FIT-DNA) COLOGUARD (FIT-DNA) [facility] Start: 2000 Colonoscopy COLONOSCOPY [facility] Start: 2000 COLORECTAL CANCER SCREENING COLORECTAL CANCER SCREENING [facility] Start: [address] COLONOGRAPHY [facility] Start: 2000 FECAL OCCULT BLOOD FECAL OCCULT BLOOD [facility] Start: 2000 Screening for malignant neoplasm of colon [facility] Start: 2000 SIGMOIDOSCOPY SIGMOIDOSCOPY [facility] Start: 1974 Urine microalbumin profile [facility] Start: 1973 HEPATITIS C SCREENING HEPATITIS C SCREENING [facility] Start: 1973 Hepatitis C screening Hepatitis C Screening [facility] Start: 1967 Adult depression screening assessment DEPRESSION SCREENING [facility] End: 09-05-2023 Mri spinal canal lumbar w/o contrast material MRI LUMBAR SPINE WO IVCON Radiology Routine Spinal stenosis of lumbar region with neurogenic claudication 1 Occurrences starting 08/06/2022 until 09/05/2023 [facility] Work Phone: Immunizations Immunization Date Immunization Notes Care Provider Margo conner 09-01-2022 influenza virus vacc ine, unspecified formulation Yasmany Gutierrez PA-C Work Phone: [facility] Payers Date Payer Category Payer Unknown [id number] 2021 Unknown [id number] Social History Date Type Detail Facility Start: 02-10-2016 Tobacco smoking stat us NHIS Never smoked tobacco [facility] Start: 02-10-2016 Tobacco use and exposure Smoke less tobacco non-user [facility] Start: 02-10-2016 End: 08-06-2022 Alcohol intake Not Asked [facility] Start: 1955 Sex Assigned At Not on file [facility] Start: 07-31-2022 End: 10-26-2022 Exposure to SARS-CoV-2 (event) Not sure [facility] Start: 08-06-2022 End: 09-29-2023 History of Social function [facility] Start: 08-06-2022 End: 09-29-2023 Tobacco use panel [facility] Adult Depression Scr eening Assessment [address] [facility] Clinical Notes 08-04-2022 to 12-15-2023 Telephone Encounter - Yasmany Gutierrez PA-C - 10/29/2023 3:25 PM ESTTelephone Encounter - Jon Saldivar - 10/11/2023 11:33 AM Yasmany England PA-C - 09/29/2023 3:01 PM EST Note Date & Type Note Facility 12-15-2023 Note HNO ID: [id number] Author: YASMANY GUTIERREZ PA-C Service: ? Author Type: Physician Flarer Type: Progress Notes Filed: 12/15/2023 14:49 Note [...] repeat BOBBI (L3-4 IL) with Dr. Kerr ([facility]) Consult Dr. Naranjo surgical opinion if BOBBI fails to offer long term care pharmacist relief Refill gabapentin Yasmany Gutierrez PA-C Spine Surgery [facility] 12-02-2023 Note HNO ID: [id number] Author: LUIS KAPOOR RT(Abby) Service: ? Author [...] RT Shanti(R) December 02, 2023 10:07 AM [facility] 11-17-2023 Note HNO ID: [id number] Author: Pravin Kirby DO Service: ? Author Type: Physician Type: Procedures Filed: 11/17/2023 12:54 PM Note Text: PROCEDURE REPORT Surgery/Procedure Date: November 17, 2023 Interventionalist: Pravin Kirby DO Procedure(s): L3-4 interlaminar epidural steroid injection Pre-Op/Pre-Procedure Diagnosis: Lumbar spinal canal stenosis with neurogenic claudication Post-Op Diagnosis: same SUBJECTIVE: Fransico Soriano is a 68 year old male who presents to [facility] S[facility] for a Lumbar epidural steroid injection. This is his first (1) procedure with ga, but he had an L4-5 interlaminar epidural steroid injection with Dr. Kerr on 08/12/23. 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 68 year old [...] instructions reviewed with patient. Pravin Kirby DO [facility] 11-17-2023 Note HNO ID: [id number] Author: Jeanne Sarmiento RN Service: ? Author [...] L3-L4. Verified by patient by: Dr. Kirby Cnc Technician for post spine injection procedure: Yes Patient [...] 10=extreme) Discharge: Verbal (more content not included)... [facility] 11-17-2023 Note HNO ID: [id number] Author: Sal Sawyer MD Service: ? Author [...] MRI, repeat dose if necessary, will need cat driver DARLENE 5 mg/0.5 mL pen injector [...] with explicit agreement by patient or patient inside outside sales representative to proceed before procedure. SIGNATURE: Sal Sawyer MD PATIENT NAME: Fransico Soriano DATE: November 17, 2023 TIME: 10:55 AM [facility] 10-29-2023 Miscellaneous Notes Contacted patient, discussed his [...] for surgical consult documented in this encounter [facility] 10-11-2023 Miscellaneous Notes Patient scheduled for a procedure on 12/22/23 in the [facility]. Pt instructed that a cat driver must remain present during the entire [...] Yes Printed instructions handed to patient: No Solazymehart message sent with instructions:Yes Order entered for L3-4 IL injection Imaging reviewed with Dr. Kerr 10/08 Message sent to Yfn for scheduling injection Yasmany Gutierrez PA-C Spine Surgery documented in this encounter [facility] 09-29-2023 Note HNO ID: [id number] Author: Yasmany Gutierrez PA-C Service: ? Author Type: Physician Flarer Type: Progress Notes Filed: 09/30/2023 8:22 AM [...] Spine Surgery A total of 30 minutes [id number] time was spent reviewing patients imaging, examining the patient, and discussing further treatment options. [facility] 09-29-2023 History of Presen t illness Narrative [...] Spine Surgery A total of 30 minutes [id number] time was spent reviewing patients imaging, examining the patient, and discussing further treatment options. documented in this encounter [facility] 09-24-2023 Miscellaneous Notes Spoke with patient. See Telephone encounter 09/23/23 documented in this encounter [facility] 08-18-2023 Miscellaneous Notes Patients called to ask if the appointment her has scheduled for tomorrow is too soon after his procedure. Please advise documented in this encounter [facility] 07-29-2023 Miscellaneous Notes Called and spoke with patient. Discussed medication guidelines for upcoming procedure. Patient verbalizes understanding. Information sent on eV[employer] for review. No other questions or concerns. documented in this encounter [facility] 11-05-2022 Miscellaneous Notes Injection order for Dr. Kerr LEFT paramedian L4-5 BOBBI Await patient response on proceeding prior to scheduling Yasmany Gutierrez PA-C Spine Surgery documented in this encounter [facility] 09-07-2022 Miscellaneous Notes Returned call to # provided, was patients #. 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 Unable to contact [facility] schedulers. Called radiology scheduling, states order looks ok, unsure reason for call, will forward to foam rubber mixer to contact patient. Eufemia Muñiz RN Tabbetha with scheduling is calling pertaining MRI order PA placed Tabbetha states a whole new MRI order is need due conflicting comments Tabbetha states order need to be IV sedation or anesthesia Tabbetha is requesting to call patient back when order is placed [phone] documented in this encounter [facility] 09-04-2022 Miscellaneous Notes I would not recommend open MRI for spine I have placed the order for MRI with IV sedation per patient request Yasmany Gutierrez PA-C Spine Surgery Spoke with patient. States never had an MRI in past. Did not know he was claustrophobic. Took him 2 days to be able to call us due to being so upset with experience. [place] location is under construction and MRI's are [...] claustrophobia. Please call him back at ph: [phone] Neuro SPINE CARE COORDINATION QUICK NOTE Reviewed chart. Appt scheduling note indicates pt left MRI without being seen. Call to pt to gather more information. No answer. LVM with office number for call back. Carolin Dominguez RN Pro Shop Attendant ----- Message from Yasmany Gutierrez PA-C sent at 09/01/2022 10:00 AM EDT ----- Eufemia Can you check on if this MRI was completed, it looks like from appointments he was checked in, no images available outside of his lumbar XR, and I need to review the MRi with Dr. Kerr tomorrow or Th Thank you Al documented in this encounter [facility] 08-27-2022 History of Presen t illness [...] 2022 8:34 AM documented in this encounter [facility] 08-06-2022 History of Presen t illness [...] 10:11 AM PAGER: documented in this encounter [facility] 08-04-2022 Miscellaneous Notes Seeing JULIUS 08/06/22, imaging and repost here 06/09/19 lumbar xray. Eufemia Muñiz RN Received the following record(s) via Fax. -xray(report) Date 06/09/19 Record(s) scanned into pt's chart. Leandra Coleman documented in this encounter [facility] documented [facility] Diagnosis Spinal stenosis of lumbar region with neurogenic claudication Spinal stenosis, lumbar region, with neurogenic claudication [facility] Diagnosis Spinal stenosis of lumbar region with neurogenic claudication- Primary Spinal stenosis, lumbar region, with neurogenic claudication documented [facility] Diagnosis Spinal stenosis of lumbar region with neurogenic claudication Spinal stenosis, lumbar region, with neurogenic claudication documented [facility]* Diagnosis Spinal stenosis, lumbar region with neurogenic claudication- Primary documented [facility] Diagnosis Spinal stenosis of lumbar region with neurogenic claudication- Primary Spinal stenosis, lumbar region, with neurogenic claudication documented [facility]* Diagnosis Spinal stenosis, lumbar region with neurogenic claudication- Primary Lumbosacral neuritis Thoracic or lumbosacral neuritis or radiculitis, unspecified Lumbosacral neuritis Thoracic or lumbosacral neuritis or radiculitis, unspecified documented [facility]* Diagnosis Spinal stenosis of lumbar region with neurogenic claudication- Primary Spinal stenosis, lumbar region, with neurogenic claudication Spinal stenosis, lumbar region with neurogenic claudication Claustrophobia Other isolated or specific phobias documented in this encounter [facility] for referral (narrative)* Diagnostic Procedure Only (Routine) - Closed Specialty Diagnoses / Procedures Referred By Contac t Referred To Contact XR IMAGING Diagnoses Spinal stenosis of lumbar region with neurogenic claudication Procedures XR LUMBAR MOTION 4V AP/LAT/ FLEX/EXT RADEX SPINE LUMBOSACRAL MINIMUM 4 VIEWS Yasmany Gutierrez PA-C [address] [place] [address] Xr Imaging Referral ID Status Reason Start Date Expiration Date V isits Requested Visits Authorized [id number] Closed Auto-Generate d Referral 08/06/2022 09/05/2023 1 1 [facility] for visit Narrative* Diagnostic Procedure Only (Routine) - Closed Specialty Diagnoses / Procedures Referred By Contac t Referred To Contact XR IMAGING Diagnoses Spinal stenosis of lumbar region with neurogenic claudication Procedures XR LUMBAR MOTION 4V AP/LAT/ FLEX/EXT RADEX SPINE LUMBOSACRAL MINIMUM 4 VIEWS Yasmany Gutierrez PA-C [address] [place] [address] Xr Imaging Referral ID Status Reason Start Date Expiration Date V isits Requested Visits Authorized [id number] Closed Auto-Generate d Referral 08/06/2022 09/05/2023 [address] [facility] Reason for Referral Specialty Diagnoses / Procedures Referred By Contac t Referred To Contact MR IMAGING Diagnoses Spinal stenosis of lumbar region with neurogenic claudication Procedures MRI LUMBAR SPINE WO IVCON MRI SPINAL CANAL LUMBAR W/O CONTRAST MATERIAL Yasmany Gutierrez PA-C [address] [place] [address] Mr Imaging Referral ID Status Reason Start Date Expiration Date Visits Requested Visits Authorized [id number] Additional Clinical Info Needed Auto-Generat ed Referral 08/06/2022 09/05/2023 1 1 Specialty Diagnoses / Procedures Referred By Contac t Referred To Contact XR IMAGING Diagnoses Spinal stenosis of lumbar region with neurogenic claudication Procedures XR LUMBAR MOTION 4V AP/LAT/ FLEX/EXT RADEX SPINE LUMBOSACRAL MINIMUM 4 VIEWS Yasmany Gutierrez PA-C [address] [place] [address] Xr Imaging Referral ID Status Reason Start Date Expiration Date Visits Requested Visits Authorized [id number] Authorized Auto-Generat ed Referral 08/06/2022 09/05/2023 1 1 Referral ID Status Reason Start Date Expiration Date Visits Requested Visits Authorized [id number] Pending Review Auto-Generat ed Referral 10/04/2023 1 1 Referral ID Status Reason Start Date Expiration Date V isits Requested Visits Authorized [id number] Closed Auto-Generate d Referral 11/22/2021 11/21/2022 1 1 Specialty Diagnoses / Procedures Referred By Contramu t Referred To Contact MR IMAGING Diagnoses Spinal stenosis, lumbar region with neurogenic claudication Procedures MRI LUMBAR SPINE WO IVCON MRI SPINAL CANAL LUMBAR W/O CONTRAST MATERIAL Yasmany Gutierrez PA-C [address] [place] [id number] [facility] [place] [address] Referral ID Status Reason Start Date Expiration Date Visits Requested Visits Authorized [id number] Authorized Auto-Generat ed Referral 10/29/2023 11/27/2024 1 [...] or prosecute any alcohol or drug abuse patient.[facility] the event this information is protected by the Federal Confidentiality of Alcohol and Drug Abuse Patient Records regulations: The Federal rules restrict any use of the information to criminally investigate or prosecute any alcohol or drug abuse patient.[facility] the event this information is protected by the Federal Confidentiality of Alcohol and Drug Abuse Patient Records regulations: The Federal rules restrict any use of the information to criminally investigate or prosecute any alcohol or drug abuse patient.[facility] the event this information is protected by the Federal Confidentiality of Alcohol and Drug Abuse Patient Records regulations: The Federal rules restrict any use of the information to criminally investigate or prosecute any alcohol or drug abuse patient.[facility] the event this information is protected by the Federal Confidentiality of Alcohol and Drug Abuse Patient Records regulations: The Federal rules restrict any use of the information to criminally investigate or prosecute any alcohol or drug abuse patient.[facility] the event this information is protected by the Federal Confidentiality of Alcohol and Drug Abuse Patient Records regulations: The Federal rules restrict any use of the information to criminally investigate or prosecute any alcohol or drug abuse patient.[facility] the event this information is protected by the Federal Confidentiality of Alcohol and Drug Abuse Patient Records regulations: The Federal rules restrict any use of the information to criminally investigate or prosecute any alcohol or drug abuse patient.[facility] the event this information is protected by the Federal Confidentiality of Alcohol and Drug Abuse Patient Records regulations: The Federal rules restrict any use of the information to criminally investigate or prosecute any alcohol or drug abuse patient.[facility] the event this information is protected by the Federal Confidentiality of Alcohol and Drug Abuse Patient Records regulations: The Federal rules restrict any use of the information to criminally investigate or prosecute any alcohol or drug abuse patient.[facility] the event this information is protected by the Federal Confidentiality of Alcohol and Drug Abuse Patient Records regulations: The Federal rules restrict any use of the information to criminally investigate or prosecute any alcohol or drug abuse patient.[facility] the event this information is protected by the Federal Confidentiality of Alcohol and Drug Abuse Patient Records regulations: The Federal rules restrict any use of the information to criminally investigate or prosecute any alcohol or drug abuse patient.[facility] the event this information is protected by the Federal Confidentiality of Alcohol and Drug Abuse Patient Records regulations: The Federal rules restrict any use of the information to criminally investigate or prosecute any alcohol or drug abuse patient.[facility] the event this information is protected by the Federal Confidentiality of Alcohol and Drug Abuse Patient Records regulations: The Federal rules restrict any use of the information to criminally investigate or prosecute any alcohol or drug abuse patient.[facility] the event this information is protected by the Federal Confidentiality of Alcohol and Drug Abuse Patient Records regulations: The Federal rules restrict any use of the information to criminally investigate or prosecute any alcohol or drug abuse patient.[facility] the event this information is protected by the Federal Confidentiality of Alcohol and Drug Abuse Patient Records regulations: The Federal rules restrict any use of the information to criminally investigate or prosecute any alcohol or drug abuse patient.[facility] the event this information is protected by the Federal Confidentiality of Alcohol and Drug Abuse Patient Records regulations: The Federal rules restrict any use of the information to criminally investigate or prosecute any alcohol or drug abuse patient.[facility] Reason for Visit (unrecogniz ed section and content) Reason Comments New Patient Reason Comments Return Provider Call Reason Comments Appointment Specialty Diagnoses / Procedures Referred By Fidelia syed Referred To Contact MR IMAGING Diagnoses Spinal stenosis of lumbar region with neurogenic claudication Procedures MRI LUMBAR SPINE WO IVCON MRI SPINAL CANAL LUMBAR W/O CONTRAST MATERIAL Yasmany Gutierrez, SHAMIKA [address] [place] [address] Mr Imaging Referral ID Status Reason Start Date Expiration Date V isits Requested Visits Authorized [id number] Closed Auto-Generate d Referral 11/22/2021 11/21/2022 1 1 Reason Comments Preparations For Procedures Reason Comments Patient Question Reason Comments Follow Up Spinal injection (unrecognized sect ion and content) No Status Records FoundNo Status Records Found INFORMATION SOURCE (unrecogn ized section and content) DATE CREATED AUTHOR AUTHOR'S ORGANIZ ATION 12/16/2023 [facility] Care Teams (unrecognized sec tion and content) Sausage Wrapper Relationship Specialty Start Date End Date Enid Chaney MD [address] [place] [address] PCP - General Internal Medicine 08/10/23 Sausage Wrapper Relationship Specialty Start Date End Date Enid Chaney MD [address] [place] [address] PCP - General Internal Medicine 08/10/23 Sausage Wrapper Relationship Specialty Start Date End Date Enid Chaney MD [address] [place], [place] [id number] PCP - General Internal Medicine 08/10/23 Sausage Wrapper Relationship Specialty Start Date End Date Enid Chaney MD [address] [place], [place] [phone] (work) PCP - General Internal Medicine 08/10/23 [...] BE BASED ON THE PRIMARY CLINICAL RECORDS. [facility]. provides no warranty or guarantee of the accuracy or completeness of information in this document.
== END | disposition home or self-care (01) ==
LOC: US 11:49
PROVIDERS: PCP Family Medicine; Referring Provider Internal Medicine Nephrology; Visit Provider Internal Medicine Nephrology
DX: E87.6 Hypokalemia (principal)
CPT/HCPCS: 76770

== ENCOUNTER → 2024-01-11 | Outpatient (CLI) | payer BC, SELFPAY | END | disposition home or self-care (01) | LOC: MFPLAB 09:28 | PROVIDERS: PCP Family Medicine; Visit Provider Family Medicine | DX: Z00.00 Encounter for general adult medical examination without abnormal findings (principal) ==

== ENCOUNTER → 2024-02-15 | Outpatient (CLI) | payer BC, SELFPAY ==
[2024-02-15 13:49] LABS: Anion Gap 12 (5-15); BUN 12 mg/dL (7-18); BUN/Creat Ratio 13.6 RATIO (10-20); Calcium,Total 8.8 mg/dL (8.5-10.1); Chloride 106 mmol/L (98-107); Creatinine, Serum 0.88 mg/dL (0.70-1.30); EST Glomerular Filtration Rate 91 mL/min (>60); Est Glom Filt Rate - Afr Amer 110 mL/min (>60); Glucose 108 mg/dL (74-106); Sodium Level 139 mmol/L (136-145)
== END | disposition home or self-care (01) ==
LOC: MTLAB 09:22
PROVIDERS: PCP Family Medicine; Referring Provider Internal Medicine Nephrology; Visit Provider Internal Medicine Nephrology
DX: E87.6 Hypokalemia (principal)
CPT/HCPCS: 36415; 80048

== ENCOUNTER → 2024-03-24 | Outpatient (CLI) | payer BC, SELFPAY ==
[2024-03-24 10:29] LABS: Anion Gap 6 (5-15); BUN 12 mg/dL (7-18); BUN/Creat Ratio 14.2 RATIO (10-20); Calcium,Total 8.8 mg/dL (8.5-10.1); Chloride 103 mmol/L (98-107); Creatinine, Serum 0.84 mg/dL (0.70-1.30); EST Glomerular Filtration Rate 96 mL/min (>60); Est Glom Filt Rate - Afr Amer 116 mL/min (>60); Glucose 119 mg/dL (74-106); Sodium Level 139 mmol/L (136-145)
== END | disposition home or self-care (01) ==
LOC: MTLAB 09:14
PROVIDERS: PCP Family Medicine; Referring Provider Family Medicine; Visit Provider Family Medicine
DX: E87.6 Hypokalemia (principal)
CPT/HCPCS: 36415; 80048

== ENCOUNTER → 2024-04-03 | Outpatient (CLI) | payer BC, SELFPAY ==
[2024-04-03 12:33] LABS: Potassium 3.3 mmol/L (3.5-5.1)
== END | disposition home or self-care (01) ==
LOC: MFPLAB 10:54
PROVIDERS: PCP Family Medicine; Visit Provider Family Medicine
DX: E87.6 Hypokalemia (principal)
CPT/HCPCS: 36415; 84132

== ENCOUNTER → 2024-08-30 | Outpatient (CLI) | payer BC, SELFPAY ==
[2024-08-30 10:53] LABS: Anion Gap 7 (5-15); BUN 12 mg/dL (7-18); BUN/Creat Ratio 14.8 RATIO (10-20); Calcium,Total 9.2 mg/dL (8.5-10.1); Chloride 104 mmol/L (98-107); Creatinine, Serum 0.81 mg/dL (0.70-1.30); EST Glomerular Filtration Rate 100 mL/min (>60); Est Glom Filt Rate - Afr Amer 122 mL/min (>60); Glucose 154 mg/dL (74-106); Potassium 3.4 mmol/L (3.5-5.1); Sodium Level 137 mmol/L (136-145)
== END | disposition home or self-care (01) ==
LOC: POLAB3 10:20
PROVIDERS: PCP Family Medicine; Visit Provider Internal Medicine Nephrology
DX: E87.6 Hypokalemia (principal)
CPT/HCPCS: 36415; 80048

== ENCOUNTER → 2024-09-25 | Outpatient (CLI) | payer BC, SELFPAY ==
[2024-09-25 15:57] LABS: Anion Gap 8 (5-15); BUN 16 mg/dL (7-18); BUN/Creat Ratio 15.1 RATIO (10-20); Calcium,Total 9.4 mg/dL (8.5-10.1); Chloride 106 mmol/L (98-107); Creatinine, Serum 1.06 mg/dL (0.70-1.30); EST Glomerular Filtration Rate 74 mL/min (>60); Est Glom Filt Rate - Afr Amer 89 mL/min (>60); Glucose 102 mg/dL (74-106); Potassium 4.3 mmol/L (3.5-5.1); Sodium Level 138 mmol/L (136-145)
== END | disposition home or self-care (01) ==
LOC: MTLAB 11:33
PROVIDERS: PCP Family Medicine; Referring Provider Internal Medicine Nephrology; Visit Provider Internal Medicine Nephrology
DX: E87.6 Hypokalemia (principal)
CPT/HCPCS: 36415; 80048

== ENCOUNTER → 2025-01-15 | Outpatient (CLI) | payer MEDICARE, OTHER, SELFPAY ==
[2025-01-15 16:49] LABS: Hemoglobin A1c 6.5 % (3.8-5.6)
[2025-01-15 20:39] LABS: ALB/GLOB Ratio 1.1 RATIO (0.9-2.4); AST(SGOT) 22 U/L (15-37); Alanine Aminotransfer ALT/SGPT 35 U/L (16-61); Alkaline Phosphatase 121 U/L (45-117); Anion Gap 7 (5-15); BUN 20 mg/dL (7-18); BUN/Creat Ratio 18.5 RATIO (10-20); Calcium,Total 9.1 mg/dL (8.5-10.1); Chloride 105 mmol/L (98-107); Cholesterol 172 mg/dL (200); Creatinine, Serum 1.08 mg/dL (0.70-1.30); EST Glomerular Filtration Rate 72 mL/min (>60); Est Glom Filt Rate - Afr Amer 87 mL/min (>60); Globulin 3.5 g/dL (2.2-4.2); Glucose 132 mg/dL (74-106); High Density Lipoprotein 50 mg/dL; Magnesium 2.1 mg/dL (1.6-2.6); Potassium 4.2 mmol/L (3.5-5.1); Protein, Total 7.5 g/dL (6.4-8.2); Sodium Level 137 mmol/L (136-145); Triglycerides 111 mg/dL; Very Low Density Lipoprotein 22 mg/dL (5-40)
== END | disposition home or self-care (01) ==
LOC: MFPLAB 10:46
PROVIDERS: PCP Family Medicine; Referring Provider Family Medicine; Visit Provider Family Medicine
DX: E11.9 Type 2 diabetes mellitus without complications (principal); E87.6 Hypokalemia; E78.5 Hyperlipidemia, unspecified
CPT/HCPCS: 36415; 80053; 80061; 83036; 83735

== ENCOUNTER → 2025-02-16 | Outpatient (CLI) | payer MEDICARE, OTHER, SELFPAY ==
[2025-02-16 16:49] LABS: Anion Gap 15 (5-15); BUN 17 mg/dL (4-19); BUN/Creat Ratio 13.9 RATIO (10-20); Calcium,Total 9.4 mg/dL (7.6-11.0); Carbon Dioxide 21.9 mmol/L (21.0-32.0); Chloride 99 mmol/L (98-108); Creatinine, Serum 1.19 mg/dL (0.70-1.20); EST Glomerular Filtration Rate 66 (>60); Glucose 117 mg/dL (70-99); Potassium 4.4 mmol/L (3.3-5.1); Sodium Level 137 mmol/L (133-145)
== END | disposition home or self-care (01) ==
LOC: MTLAB 11:46
PROVIDERS: PCP Family Medicine; Referring Provider Internal Medicine Nephrology; Visit Provider Internal Medicine Nephrology
DX: E87.6 Hypokalemia (principal)
CPT/HCPCS: 36415; 80048

== ENCOUNTER → 2025-07-19 | Outpatient (CLI) | payer MEDICARE, OTHER, SELFPAY ==
[2025-07-19 13:25] LABS: PSA,Total - Annual Screen 1.70 ng/mL (0.02-4.00); Potassium 4.4 mmol/L (3.3-5.1)
== END | disposition home or self-care (01) ==
LOC: MFPLAB 10:27
PROVIDERS: PCP Family Medicine
DX: Z12.5 Encounter for screening for malignant neoplasm of prostate (principal); E87.6 Hypokalemia
CPT/HCPCS: 36415; 84132; 84153; G0103

== ENCOUNTER → 2025-10-22 | Outpatient (CLI) | payer MEDICARE, OTHER, SELFPAY ==
[2025-10-22 18:27] LABS: Anion Gap 13 (5-15); BUN 16 mg/dL (4-19); BUN/Creat Ratio 14.3 RATIO (10-20); Calcium,Total 9.7 mg/dL (7.6-11.0); Carbon Dioxide 24.3 mmol/L (21.0-32.0); Chloride 102 mmol/L (98-108); Glucose 127 mg/dL (70-99); Potassium 4.3 mmol/L (3.3-5.1)
== END | disposition home or self-care (01) ==
PROVIDERS: PCP Family Medicine; Referring Provider Internal Medicine Nephrology; Visit Provider Internal Medicine Nephrology
DX: R79.89 Other specified abnormal findings of blood chemistry (principal)
CPT/HCPCS: 36415; 80048